=== PATIENT | female | born 1995 | race Caucasian/White ===

== ENCOUNTER 2019-05-30 10:49 | Emergency (ER) | payer OTHER, SELFPAY ==
--- NOTE | 2019-05-30 11:14 | ED.ABDPAIN ---
HPI - Abdominal Pain General Chief Complaint: Abdominal Pain Stated Complaint: Abdomen Pain Time Seen by Provider: 05/30/19 11:14 Source: patient Mode of arrival: ambulatory Limitations: no limitations History of Present Illness HPI narrative: Previously well 23-year-old woman comes in today complaining of abdominal pain that started approximately 30 minutes ago. Patient states that she has had some nausea. She states she also has been constipated for the last few days. LMP was 05/11. She has had no vaginal discharge, dysuria, hematuria, frequent urination, fever, diarrhea, vomiting or cough or cold symptoms. She is on OCP. She was treated with antibiotics approximately 1 month ago. Last intake was 929. MD elicited complaint: abdominal pain Pertinent past history: none Onset (ago): minute(s) (30) Pain Consistency: constant Location: periumbilical Severity: moderate Quality: fullness Radiation: none Migration to: no migration Exacerbating factors: nothing Relieving factors: nothing Associated symptoms: nausea Related Data Date of Last Menstrual Period: 05/12/19 Home Medications Medication Instructions Recorded Confirmed drospirenone-ethinyl estradiol 1 tablet PO DAILY 05/30/19 05/30/19 Allergies Allergy/AdvReac Type Severity Reaction Status Date / Time No Known Allergies Allergy Verified 05/30/19 11:20 Review of Systems Constitutional: Constitutional: Denies chills, Denies fever(s) and Denies weakness Eyes: Eyes: Denies change in vision and Denies photophobia ENT: Denies dysphagia, Denies nasal congestion and Denies sore throat Cardiovascular: Cardiovascular: Denies chest pain and Denies radiating jaw, neck or arm pain Respiratory: Respiratory: Denies no additional respiratory complaints, Denies cough, Denies dyspnea and Denies wheezing Gastrointestinal: Gastrointestinal: Reports as per HPI Genitourinary: Genitourinary: Denies hematuria, Denies nocturia, Denies dysuria and Denies vaginal discharge Musculoskeletal: Musculoskeletal: Denies myalgias, Denies arthralgias, Denies joint swelling and Denies muscle cramps Integumentary/Breasts: Skin/Breast: Denies pruritus, Denies erythema and Denies rash Neurologic: Denies vertigo, Denies dizziness and Denies syncope Psychiatric: Psychiatric: Denies anxiety and Denies depression Endocrine: Endocrine: Denies polydipsia and Denies polyuria Hematologic/Lymphatic: Hematologic/Lymphatic: Denies easy bleeding and Denies easy bruising Allergic/Immunologic: Allergic/Immunologic: Denies lip swelling and Denies wheezing [facility] Social History Social History (Updated 05/30/19 @ 11:43 by Zak Lorenzo MD) Smoking status: Never smoker Alcohol use details: Occasional Substance use: never Living arrangements: with family Exam Const: General: no acute distress and alert Nutritional Appearance: obese Orientation/consciousness: patient oriented x3 HENMT: Ears: external ears normal, TM's normal bilaterally and EAC's normal Mouth: Yes Normal oral and palatal mucosa present and Yes moist mucous membranes Throat: posterior oropharynx normal and uvula midline Eyes: Conjunctivae: conjunctivae normal Pupils: Equal, round and reactive pupils present EOM: EOMs intact bilaterally Resp: Effort & Inspection: normal respiratory effort and not labored Auscultation: clear to auscultation bilaterally, no rales, no rhonchi and no wheezes Cardio: Rate: regular rate Rhythm: regular rhythm Heart sounds: no murmurs GI: GI Palp: Yes Soft to palpation, Yes Tenderness to palpation present (GI) ( mildly periumbilical and right lower quadrant. No guarding. ), No Guarding due to palpation present (GI) and No Rigid due to palpation Other: mild percussion tenderness in the right lower quadrant. Diffuse abdominal striae. Skin: General skin exam: normal color, no jaundice and no pallor Rashes: no rashes Neuro: General: patient oriented x3, moves all extremiti
[2019-05-30 11:17] VITALS: BP 125/72; PULSE 96; RESP 18; TEMP 36.5; O2SAT 98
[2019-05-30 11:38] LABS: Add Urine Microscopic? YES; Appearance Urine Sl Cloudy (Clear); Bilirubin Urine Negative (Negative); Blood Urine Negative (Negative); Color Urine Yellow (Yellow); Glucose Urine UA Negative (Negative); Ketones Urine Negative (Negative); Leukocyte Esterase Ur Trace (Negative); Nitrate Urine Negative (Negative); Protein Urine Negative (Negative); Specific Grav Ur >= 1.030 (1.010-1.020); Urobilinogen Urine 0.2 mg/dL (0.2-1.0)
[2019-05-30] MEDS: SODIUM CHLORIDE 0.9% IV 1,000 ML 999 ML IV CONT (11:38)
[2019-05-30] MEDS: ONDANSETRON INJ 4 MG/2 ML VIAL IV PUSH (11:38)
[2019-05-30 11:40] LABS: Basophils Absolute Auto 0.03 K/mm3 (0.00-0.10); Basophils Percent Auto 0.4 % (0.0-1.0); Eosinophils Absolute Auto 0.11 K/mm3 (0.02-0.50); Eosinophils Percent Auto 1.5 % (1.0-6.0); Hemoglobin 13.3 g/dL (12.0-15.0); Immature Granulocyte Absolute 0.05 K/mm3 (0.00-0.00); Immature Granulocyte Percent A 0.7 % (0.0-0.0); Lymphocytes Absolute Auto 1.35 K/mm3 (1.10-4.50); Lymphocytes Percent Auto 18.5 % (18.0-42.0); Mean Corpuscular HGB Conc 33.3 g/dL (32.0-36.0); Mean Corpuscular Hemoglobin 27.3 pg (27.0-31.0); Mean Corpuscular Volume 82.1 fL (78.0-102.0); Mean Platelet Volume 10.5 fl (9.2-11.8); Monocytes Percent Auto 6.9 % (2.0-11.0); Neutrophils Absolute Auto 5.2 K/mm3 (1.7-7.2); Platelet Count Result 235 K/mm3 (150-420); Red Blood Count 4.87 M/mm3 (4.20-5.40); Red Cell Distribution Width 13.2 % (11.6-14.4); White Blood Count 7.3 K/mm3 (4.8-10.8)
[2019-05-30 11:47] LABS: RBC Urine None seen /hpf (0-2); Squamous Epithelial Cell Urine Moderate /hpf (Few); WBC Urine None seen /hpf (0-3)
[2019-05-30 11:48] LABS: Bacteria Urine 1+ /hpf
[2019-05-30 11:55] LABS: Lactic Acid Reflex 0.8 mmol/L (0.4-2.0)
[2019-05-30 11:59] LABS: Alanine Aminotransferase 37 U/L (14-59); Albumin Level 3.2 g/dL (3.4-5.0); Alkaline Phosphatase 70 U/L (46-116); Anion Gap 14.8 mmol/L (7-16); Aspartate Amino Transferase 26 U/L (15-37); Beta HCG Quantitative < 1.00 mIU/mL (0-6); Bilirubin,Total 0.2 mg/dL (0.00-1.00); Blood Urea Nitrogen 13 mg/dL (7-18); Calcium 8.7 mg/dL (8.5-10.1); Carbon Dioxide 25 mmol/L (21-32); Chloride 106 mmol/L (98-108); Estimated CRCL calculation 124 ml/min; Estimated Glomerular Filt Rate > 60; Glucose 100 mg/dL (70-99); Lipase 91 U/L (73-393); Osmolality Calculated 294 mOsm/kg (285-295); Potassium 3.8 mmol/L (3.5-5.1); Sodium 142 mmol/L (136-145); Total Protein 6.6 g/dL (6.4-8.2)
--- NOTE | 2019-05-30 12:15 | PC.NURSE ---
Per edp ok to discontinue fluids and d/c pt.
== END 2019-05-30 12:23 | disposition home or self-care (01) ==
PROVIDERS: Emergency Provider Emergency Medicine; PCP Internal Medicine
DX: R10.33 Periumbilical pain (principal)
CPT/HCPCS: 36415; 80053; 81001; 83605; 83690; 84702; 85025; 87086; 87088; 96361; 96374; 99284; J2405; J7030

== ENCOUNTER 2020-10-17 16:34 | Outpatient (CLI) | payer OTHER, SELFPAY ==
--- NOTE | 2020-10-17 17:10 | ECG_ITS ---
Measurements Intervals [place] Rate: 81 P: 29 UT: 151 QRS: 35 QRSD: 100 T: 23 QT: 350 QTc: 407 Interpretive Statements SINUS RHYTHM BASELINE ARTIFACT- II, III, AVF NORMAL ECG Electronically Signed On 10-17-2020 20:10:45 CDT by Johnny Escoto D.O.
== END 2020-10-17 16:35 | disposition home or self-care (01) ==
LOC: CHSCARD 16:38
PROVIDERS: PCP Internal Medicine; Visit Provider Internal Medicine
DX: R07.9 Chest pain, unspecified (principal)
CPT/HCPCS: 93005

== ENCOUNTER 2021-01-03 15:54 | Outpatient (CLI) | payer OTHER, SELFPAY ==
[2021-01-03 16:31] LABS: SPREG INTERNAL CONTROL Positive; Serum Qual hCG Negative
== END 2021-01-03 15:55 | disposition home or self-care (01) ==
LOC: CHSLAB 15:57
PROVIDERS: PCP Internal Medicine; Visit Provider Internal Medicine
DX: Z32.00 Encounter for pregnancy test, result unknown (principal)
CPT/HCPCS: 36415; 84703

== ENCOUNTER 2021-03-15 14:15 | Outpatient (CLI) | payer OTHER, SELFPAY ==
[2021-03-15 14:44] LABS: Serum Qual hCG Positive
[2021-03-15 14:45] LABS: SPREG INTERNAL CONTROL Positive
== END 2021-03-15 14:16 | disposition home or self-care (01) ==
LOC: CHSLAB 14:18
PROVIDERS: PCP Internal Medicine; Visit Provider Internal Medicine
DX: Z32.00 Encounter for pregnancy test, result unknown (principal)
CPT/HCPCS: 36415; 84703

== ENCOUNTER 2021-03-29 14:50 | Outpatient (CLI) | payer OTHER, SELFPAY ==
--- NOTE | ~2021-03-29 | US_ITS ---
EXAMINATION: US OB <= 14 weeks fetus DATE: 03/29/2021 15:10 INDICATION: Gestational dating TECHNIQUE: Real-time transabdominal obstetric ultrasound. FINDINGS: No prior studies for comparison. The uterus measures 9.3 x 5.1 x 5.8 cm. There is an intrauterine gestational sac, with pole raul ntified. The crown rump length measures 1.35 cm, which correlates with a estimated gestational age o f 7 weeks 4 days. heart tones are identified measuring 171 BPM. Right ovary is unremarkable. Left ovary not visualized. No free fluid in the pelvis. IMPRESSION: 1. SL IUP with an EGA of 7 weeks, 4 days (EDC by current ultrasound of 11/11/2021). Reviewed, dictated and finalized at location B. LEATH[facility] SORTER IMPRESSION: 1. SL IUP with an EGA of 7 weeks, 4 days (EDC by current ultrasound of 2).
== END 2021-03-29 14:51 | disposition home or self-care (01) ==
LOC: CHSIMG 14:51
PROVIDERS: PCP Internal Medicine; Visit Provider Student in an Organized Health Care Education/Training Program
DX: O36.80X0 Pregnancy with inconclusive fetal viability, not applicable or unspecified (principal)
CPT/HCPCS: 76801

== ENCOUNTER 2021-04-25 11:10 | Outpatient (CLI) | payer OTHER, SELFPAY ==
[2021-04-25 11:30] LABS: Basophils Absolute Auto 0.02 K/mm3 (0.00-0.10); Basophils Percent Auto 0.3 % (0.0-1.0); Eosinophils Percent Auto 1.5 % (1.0-6.0); Hematocrit 41.6 % (35.0-49.0); Hemoglobin 13.9 g/dL (12.0-15.0); Immature Granulocyte Absolute 0.03 K/mm3 (0.00-0.00); Immature Granulocyte Percent A 0.4 % (0.0-0.0); Lymphocytes Absolute Auto 1.24 K/mm3 (1.10-4.50); Lymphocytes Percent Auto 18.2 % (18.0-42.0); Mean Corpuscular HGB Conc 33.4 g/dL (32.0-36.0); Mean Corpuscular Volume 80.8 fL (78.0-102.0); Mean Platelet Volume 10.7 fl (9.2-11.8); Monocytes Absolute Auto 0.41 K/mm3 (0.10-0.90); Neutrophils Percent Auto 73.6 % (50.0-70.0); Platelet Count Result 220 K/mm3 (150-420); Red Blood Count 5.15 M/mm3 (4.20-5.40); Red Cell Distribution Width 14.6 % (11.6-14.4); White Blood Count 6.8 K/mm3 (4.8-10.8)
[2021-04-25 11:45] LABS: Add Urine Microscopic? YES; Appearance Urine Sl Cloudy (Clear); Bilirubin Urine Negative (Negative); Blood Urine Negative (Negative); Color Urine Light Yellow (Yellow); Glucose Urine UA Negative (Negative); Ketones Urine Negative (Negative); Leukocyte Esterase Ur Trace (Negative); Nitrate Urine Negative (Negative); Protein Urine Negative (Negative); Specific Grav Ur >= 1.030 (1.010-1.020); Urobilinogen Urine 0.2 mg/dL (0.2-1.0)
[2021-04-25 11:49] LABS: RBC Urine None seen /hpf (0-2); WBC Urine 0-3 /hpf (0-3)
[2021-04-25 11:50] LABS: Bacteria Urine 2+ /hpf; Squamous Epithelial Cell Urine Moderate /hpf (Few)
[2021-04-25 12:05] LABS: Alanine Aminotransferase 34 U/L (14-59); Albumin Level 3.8 g/dL (3.4-5.0); Alkaline Phosphatase 67 U/L (46-116); Anion Gap 13 mmol/L (8-16); Aspartate Amino Transferase 14 U/L (15-37); Bilirubin,Total 0.4 mg/dL (0.00-1.00); Blood Urea Nitrogen 12 mg/dL (7-18); Carbon Dioxide 23 mmol/L (21-32); Chloride 104 mmol/L (98-108); Estimated Glomerular Filt Rate > 60; Glucose 80 mg/dL (70-99); Lactate Dehydrogenase 165 U/L (81-234); Osmolality Calculated 288 mOsm/kg (285-295); Potassium 4.2 mmol/L (3.5-5.1); Sodium 140 mmol/L (136-145); Thyroid Stimulating Hormone 1.46 uIU/mL (0.36-3.74); Total Protein 6.9 g/dL (6.4-8.2); Uric Acid 4.2 mg/dL (2.6-6.0)
[2021-04-25 12:13] LABS: HIV 1 P24 AG Negative (Negative); HIV 1/2 AB Negative (Negative)
[2021-04-27 13:59] LABS: RPR Screen Non-Reactive (Non-Reactive)
[2021-04-27 14:23] LABS: Hepatitis B Surface Antigen Nonreactive (Nonreactive); Hepatitis C Virus Antibody Nonreactive (Nonreactive)
[2021-04-27 14:34] LABS: Vitamin D 25 Hydroxy 15 ng/mL (30-100)
[2021-04-28 13:35] LABS: Rubella IgG Antibody 1.33 Index
[2021-04-30 02:27] LABS: Hemoglobin 13.6 g/dL (11.7-15.5); MCH 26.1 pg (27.0-33.0); MCV 82.5 fL (80.0-100.0); RDW 14.8 % (11.0-15.0); Red Blood Cell Count 5.21 Mill/uL (3.80-5.10)
[2021-05-06 13:45] LABS: CF Result NEGATIVE (NEGATIVE)
[2021-05-25 12:21] LABS: Fragile X Methylation Pattern PERFORMED
== END 2021-04-25 11:11 | disposition home or self-care (01) ==
LOC: CHSLAB 11:13
PROVIDERS: PCP Internal Medicine; Visit Provider Student in an Organized Health Care Education/Training Program
DX: Z34.90 Encounter for supervision of normal pregnancy, unspecified, unspecified trimester (principal); I10 Essential (primary) hypertension
CPT/HCPCS: 36415; 80053; 81001; 81050; 81220; 81243; 82306; 82570; 83021; 83615; 84443; 84550; 85025; 86592; 86703; 86762; 86787; 86850; 86900; 86901; 87086; 87088

== ENCOUNTER 2021-04-27 08:01 | Outpatient (CLI) | payer OTHER, SELFPAY ==
[2021-04-27 08:34] LABS: Creatinine Urine 120.62 mg/dL (40-278)
[2021-04-27 08:38] LABS: Creatinine 24 Hour Urine 1.68 g/24 hr (0.60-1.80); Total Volume 24 Hour Urine 1400 ml
[2021-04-27 08:41] LABS: Total Protein Urine 24 Hr 116 mg/24hr (0-149); Total Protein Urine Random 8.3 mg/dL (0.0-11.9); Total Volume 24 Hour Urine 1400 ml
== END 2021-04-27 08:02 | disposition home or self-care (01) ==
LOC: CHSLAB 08:04
PROVIDERS: PCP Internal Medicine; Visit Provider Student in an Organized Health Care Education/Training Program
DX: Z34.90 Encounter for supervision of normal pregnancy, unspecified, unspecified trimester (principal); I10 Essential (primary) hypertension
CPT/HCPCS: 81050; 82570; 84156

== ENCOUNTER 2021-07-20 08:04 | Outpatient (CLI) | payer OTHER, SELFPAY ==
[2021-07-20 09:24] LABS: Basophils Absolute Auto 0.02 K/mm3 (0.00-0.10); Basophils Percent Auto 0.2 % (0.0-1.0); Eosinophils Absolute Auto 0.03 K/mm3 (0.02-0.50); Eosinophils Percent Auto 0.3 % (1.0-6.0); Hematocrit 38.3 % (35.0-49.0); Hemoglobin 12.3 g/dL (12.0-15.0); Immature Granulocyte Absolute 0.13 K/mm3 (0.00-0.00); Immature Granulocyte Percent A 1.5 % (0.0-0.0); Lymphocytes Absolute Auto 1.52 K/mm3 (1.10-4.50); Mean Corpuscular HGB Conc 32.1 g/dL (32.0-36.0); Mean Corpuscular Hemoglobin 27.7 pg (27.0-31.0); Mean Corpuscular Volume 86.3 fL (78.0-102.0); Mean Platelet Volume 10.2 fl (9.2-11.8); Monocytes Absolute Auto 0.48 K/mm3 (0.10-0.90); Monocytes Percent Auto 5.4 % (2.0-11.0); Neutrophils Absolute Auto 6.8 K/mm3 (1.7-7.2); Neutrophils Percent Auto 75.6 % (50.0-70.0); Platelet Count Result 230 K/mm3 (150-420); Red Blood Count 4.44 M/mm3 (4.20-5.40); Red Cell Distribution Width 14.8 % (11.6-14.4)
[2021-07-20 11:09] LABS: Glucose 1 Hour PP 50gm Dose 109 mg/dL
== END 2021-07-20 08:05 | disposition home or self-care (01) ==
LOC: CHSLAB 08:07
PROVIDERS: PCP Internal Medicine; Visit Provider Student in an Organized Health Care Education/Training Program
DX: Z34.02 Encounter for supervision of normal first pregnancy, second trimester (principal)
CPT/HCPCS: 36415; 82947; 85025

== ENCOUNTER 2021-09-18 14:22 | Outpatient (CLI) | payer OTHER, SELFPAY ==
[2021-09-18 14:36] LABS: Basophils Absolute Auto 0.01 K/mm3 (0.00-0.10); Basophils Percent Auto 0.1 % (0.0-1.0); Eosinophils Absolute Auto 0.04 K/mm3 (0.02-0.50); Eosinophils Percent Auto 0.5 % (1.0-6.0); Hematocrit 36.2 % (35.0-49.0); Hemoglobin 11.5 g/dL (12.0-15.0); Immature Granulocyte Absolute 0.07 K/mm3 (0.00-0.00); Immature Granulocyte Percent A 0.9 % (0.0-0.0); Lymphocytes Absolute Auto 1.33 K/mm3 (1.10-4.50); Lymphocytes Percent Auto 16.9 % (18.0-42.0); Mean Corpuscular HGB Conc 31.8 g/dL (32.0-36.0); Mean Corpuscular Hemoglobin 26.4 pg (27.0-31.0); Mean Platelet Volume 11.3 fl (9.2-11.8); Monocytes Absolute Auto 0.52 K/mm3 (0.10-0.90); Monocytes Percent Auto 6.6 % (2.0-11.0); Neutrophils Absolute Auto 5.9 K/mm3 (1.7-7.2); Platelet Count Result 229 K/mm3 (150-420); Red Blood Count 4.36 M/mm3 (4.20-5.40); Red Cell Distribution Width 14.7 % (11.6-14.4); White Blood Count 7.9 K/mm3 (4.8-10.8)
[2021-09-18 15:54] LABS: HIV 1 P24 AG Negative (Negative); HIV 1/2 AB Negative (Negative)
[2021-09-20 14:59] LABS: RPR Screen Non-Reactive (Non-Reactive)
== END 2021-09-18 14:23 | disposition home or self-care (01) ==
LOC: CHSLAB 14:25
PROVIDERS: PCP Internal Medicine; Visit Provider Student in an Organized Health Care Education/Training Program
DX: Z34.03 Encounter for supervision of normal first pregnancy, third trimester (principal)
CPT/HCPCS: 36415; 85025; 86592; 86703

== ENCOUNTER 2021-10-01 21:27 | Outpatient (RCR) | payer OTHER, SELFPAY ==
[2021-10-01 21:42] VITALS: BP 116/59; PULSE 86
== END 2021-11-28 10:04 | disposition home or self-care (01) ==
LOC: ANHOBOP 21:27
PROVIDERS: PCP Internal Medicine; Visit Provider Student in an Organized Health Care Education/Training Program
DX: O36.8130 Decreased fetal movements, third trimester, not applicable or unspecified (principal); Z3A.34 34 weeks gestation of pregnancy
CPT/HCPCS: 59025

== ENCOUNTER 2021-10-13 20:15 | Outpatient (CLI) | payer OTHER, SELFPAY ==
[2021-10-13 20:27] VITALS: TEMP 36.6
[2021-10-13 20:34] VITALS: BP 120/89; PULSE 114
[2021-10-13 20:48] VITALS: BP 106/52; PULSE 92
== END 2021-10-13 21:01 | disposition home or self-care (01) ==
LOC: ANHOBOP 20:52 → ANHLDR 20:52
PROVIDERS: PCP Internal Medicine; Visit Provider Student in an Organized Health Care Education/Training Program
DX: O42.90 Premature rupture of membranes, unspecified as to length of time between rupture and onset of labor, unspecified weeks of gestation (principal); Z3A.00 Weeks of gestation of pregnancy not specified
CPT/HCPCS: 59025; 84112; 99199

== ENCOUNTER 2021-10-31 16:44 | Inpatient (IN) | payer OTHER, SELFPAY ==
[2021-10-31] VITALS (24 sets, daily range): BP systolic 127–146; BP diastolic 53–96; PULSE 80–99; RESP 16–18; TEMP 36.9–37.3; BMI 55.8
--- NOTE | 2021-10-31 16:44 | LDADM ---
This patient, Lucille England, was admitted to Labor 109 on 10/31/21 at 16:44. Plans for labor, pain management and were discussed with patient. Patient/family oriented to hospital policies and general routines including ID bracelet, bed and alarms, visiting hours, pain management, procedures, bathroom and other care routines, personal items, smoking policy, room service/diet and guest tray routines, infant security routines, and visiting hours. Patient/Family are encouraged to report perceived risks to care and to ask questions if they do not understand what they are told or what they should do. See OBIX for further documentation.
--- OUTSIDE RECORDS SUMMARY | 2021-10-31 16:48 | XMS_ITS ---
:1995 Author Care Team Providers Name Role Phone Sharmaine Hassan Primary Care Provider Unavailable Allergies Code Code System Name Reaction Severity Status Onset NKDA ? Medications Name Status Start Date Stop Date ? ? Lomedia 24 Fe 1 mg-20 mcg (24)/75 mg (4) tablet Completed 11/15/2016 02/18/2017 take 1 tablet by oral route every day Ortho Tri-Cyclen (28) 0.18 mg(7)/0.215 mg(7)/0.25 mg(7)-35 m cg tablet Completed 02/18/2017 04/14/2020 take 1 tablet by oral route every day Luisa (28) 3 mg-0.03 mg tablet Completed 08/31/2018 04/14/2020 TAKE 1 TABLET BY MOUTH EVERY DAY Problems Name Status Onset Date Source ? Body Mass Index 30+ - Obesity Active 11/15/2016 Hi story Pain in Female Genitalia Active 11/15/2016 History Combined Oral Contraceptive - Use Active 02/18/2017 History Test Negative Active 08/26/2018 History Procedures None recorded. Results Lab Results None recorded. Past Encounters None recorded. Social History Tobacco Smoking Status Never Smoker Vaccine List None recorded. Plan of Care Reminders Provider Appointments None recorded. ? ? Lab None recorded. ? ? Referral None recorded. ? ? Procedures None recorded. ? ? Surgeries None recorded. ? ? Imaging None recorded. ? ? Vitals Height Weight BMI Blood Pressure 5 ft 3 in 281 lbs 49.8 kg/m2 124/83 mm[Hg]
[2021-10-31 18:35] LABS: Basophils Percent Auto 0.1 % (0.2-1.2); Eosinophils Percent Auto 0.4 % (0-4.4); Hematocrit 36.3 % (37.0-47.0); Hemoglobin 11.7 g/dL (12.0-15.0); Immature Granulocyte Absolute 0.03 K/mm3 (0.00-0.031); Immature Granulocyte Percent A 0.4 % (0-0.5); Lymphocytes Absolute Auto 1.83 K/mm3 (0.9-3.2); Mean Corpuscular HGB Conc 32.2 g/dl (32-36); Mean Corpuscular Hemoglobin 25.6 pg (26-34); Mean Corpuscular Volume 79.4 fl (80-100); Mean Platelet Volume 11.8 fl (7.4-10.4); Monocytes Absolute Auto 0.7 K/mm3 (0.1-0.6); Monocytes Percent Auto 8.8 % (2.6-8.5); Neutrophils Absolute Auto 5.3 K/mm3 (1.3-6.7); Neutrophils Percent Auto 67.3 % (45.5-73.1); Platelet Count Result 248 k/mm3 (150-375); Red Blood Count 4.57 M/mm3 (4.2-5.4); Red Cell Distribution Width 15.9 % (11.5-14.5); White Blood Count 7.9 K/mm3 (4.5-10.0)
[2021-10-31] MEDS: DINOPROSTONE 10 MG VAG INSERT VAGINAL (18:37)
--- NOTE | 2021-10-31 19:54 | WPDANESEPP ---
Anes - Eval Pre Procedure Procedure: Labor Epidural Date/Time: 10/31/21 19:54 Pre Op Diagnosis: iol Patient Data Age: 26 Gender: F Height: 1.6 m Weight: 143 kg Last Vital Signs Pulse 83 10/31/21 19:45 BP 130/84 10/31/21 19:45 Allergies Allergy/AdvReac Type Severity Reaction Status Date / Time No Known Allergies Allergy Verified 10/24/21 09:58 Home Medications Medication Instructions Recorded Confirmed Type cholecalciferol (vitamin D3) 50 50 mcg PO DAILY 05/23/21 10/31/21 History mcg (2,000 unit) capsule prenat.vits,tahir,vuo-bhvi-uezem 1 tablet PO HS 10/12/21 10/13/21 History Laboratory Tests 10/31/21 10/31/21 10/31/21 18:14 18:14 18:14 WBC 7.9 K/mm3 K/mm3 (4.5-10.0) RBC 4.57 M/mm3 M/mm3 (4.2-5.4) Hgb 11.7 g/dL L g/dL (12.0-15.0) Hct 36.3 % L % (37.0-47.0) MCV 79.4 fl L fl (80-100) MCH 25.6 pg L pg (26-34) MCHC 32.2 g/dl g/dl (32-36) RDW 15.9 % H % (11.5-14.5) Plt Count 248 k/mm3 k/mm3 (150-375) MPV 11.8 fl H fl (7.4-10.4) Immature Gran % (Auto) 0.4 % % (0-0.5) Neut % (Auto) 67.3 % % (45.5-73.1) Lymph % (Auto) 23.0 % % (18.3-44.2) [place] % (Auto) 8.8 % H % (2.6-8.5) Eos % (Auto) 0.4 % % (0-4.4) Baso % (Auto) 0.1 % L % (0.2-1.2) Lymph # (Auto) 1.83 K/mm3 K/mm3 (0.9-3.2) [place] # (Auto) 0.7 K/mm3 H K/mm3 (0.1-0.6) Eos # (Auto) 0.0 K/mm3 K/mm3 (0-0.3) Baso # (Auto) 0.0 K/mm3 K/mm3 (0.0-0.1) Abs Immat Gran (auto) 0.03 K/mm3 K/mm3 (0.00-0.031) Absolute Neuts (auto) 5.3 K/mm3 K/mm3 (1.3-6.7) Absolute Nucleated RBC 0.0 K/mm3 K/mm3 (0.0-0.012) Nucleated RBC % 0.0 % % (0.0-0.2) RPR Pending Blood Type A Positive Antibody Screen Negative Patient hx anesthesia problems: none Family hx anesthesia problems: none Results Review: All pre-operative results and documents have been reviewed as part of the pre-operative evaluation. [facility] Past Medical History Medical History Carrier of fragile X chromosome Surgical History Surgical History [place] teeth removed Family History Family History Grandparent Ovarian cancer Social History Social History Smoking status: Never smoker Alcohol intake: former Substance use: never Gender identity (if verbalized by the patient): Female Spiritual care concerns: No Agree to blood products: Yes Exam Day of Procedure 10/31/21 19:54 Patient weight: super morbidly obese Lungs: normal air movement Airway: Mallampati scale (3) Neurological: alert and oriented
[2021-10-31] MEDS: LACTATED RINGERS 1,000 ML 125 ML IV CONT (23:38)
[2021-10-31] MEDS: OXYTOCIN 30 UNITS/NS 500 ML 30 UNITS/500 ML BAG 6 UNITS IV CONT (23:54)
[2021-11-01] VITALS (240 sets, daily range): BP systolic 99–162; BP diastolic 51–110; PULSE 76–140; RESP 12–20; TEMP 36.2–37.3; O2SAT 95–100
[2021-11-01] MEDS: LACTATED RINGERS 1,000 ML 125 ML IV CONT ×2 (01:19→07:02)
[2021-11-01 09:09] LABS: Alanine Aminotransferase 19 U/L (6-35); Albumin Level 3.1 g/dL (3.5-5.1); Alkaline Phosphatase 120 U/L (38-126); Anion Gap 8 mmol/L (8-16); Aspartate Amino Transferase 18 U/L (14-36); Bilirubin,Total 0.2 mg/dL (0.2-1.3); Blood Urea Nitrogen 12 mg/dL (7-17); Calcium 9.3 mg/dL (8.4-10.2); Carbon Dioxide 21 mmol/L (22-30); Chloride 106 mmol/L (98-107); Estimated CRCL calculation 172 ml/min; Estimated Glomerular Filt Rate > 60; Glucose 87 mg/dL (65-110); Potassium 4.3 mmol/L (3.4-5.0); Sodium 135 mmol/L (137-145); Uric Acid 6.5 mg/dL (2.5-7.5)
--- NOTE | 2021-11-01 11:45 | PM.IMHP ---
H&P: HPI History of Present Illness Date/Time: 11/01/21 11:45 Chief Complaint: Induction of labor Narrative: Patient 26-year-old LMP 01/31/2021 currently 39 weeks 1 day gestation presents to labor and delivery on the evening of 10/31/21 the for scheduled induction of labor. Patient is dated by LMP consistent with ultrasound on 03/29/2021 at 7 weeks gestation. patient was diagnosed with chronic hypertension due to elevated blood pressures prior to 20 weeks of gestation. Subsequent blood pressures have been within normal limits. Patient was also diagnosed with fragile X syndrome during . In general, patient reports feeling well. Reports occasional contractions. Denies any vaginal bleeding, leakage of fluid. Reports good movement. Review of Systems Review of Systems: All systems reviewed & are unremarkable except as noted in HPI and below Constitutional: Constitutional: Reports as per HPI and Reports no additional constitutional complaints Eyes: Eyes: Reports as per HPI and Reports no additional eye complaints ENT: Reports system reviewed and no additional complaints, except as documented and Reports as per HPI Cardiovascular: Cardiovascular: Reports as per HPI and Reports no additional cardiovascular complaints Respiratory: Respiratory: Reports as per HPI and Reports no additional respiratory complaints Gastrointestinal: Gastrointestinal: Reports as per HPI and Reports no additional gastrointestinal complaints Genitourinary: Genitourinary: Reports no additional female genitourinary complaints and Reports as per HPI Musculoskeletal: Musculoskeletal: Reports no additional musculoskeletal complaints and Reports as per HPI Integumentary/Breasts: Skin/Breast: Reports system reviewed and no additional complaints, except as docu and Reports as per HPI Neurologic: Reports system reviewed and no additional complaints, except as documented and Reports as per HPI Psychiatric: Psychiatric: Reports no additional psychiatric complaints and Reports as per HPI Endocrine: Endocrine: Reports no additional endocrine complaints and Reports as per HPI Hematologic/Lymphatic: Hematologic/Lymphatic: Reports no additional hematologic/lymphatic complaints and Reports as per HPI Allergic/Immunologic: Allergic/Immunologic: Reports no additional allergic/immunologic complaints and Reports as per HPI PMFSH Past Medical History Medical History Carrier of fragile X chromosome Surgical History Surgical History [place] teeth removed Family History Family History Grandparent Ovarian cancer Social History Social History Smoking status: Never smoker Alcohol intake: former Substance use: never Gender identity (if verbalized by the patient): Female Spiritual care concerns: No Agree to blood products: Yes Meds Home Medications and Allergies Home Medications Medication Instructions Recorded Confirmed Type cholecalciferol (vitamin D3) 50 50 mcg PO DAILY 05/23/21 10/31/21 History mcg (2,000 unit) capsule prenat.vits,tahir,[id number]-jbqhu 1 tablet PO HS 10/12/21 10/13/21 History Allergies Allergy/AdvReac Type Severity Reaction Status Date / Time No Known Allergies Allergy Verified 10/24/21 09:58 Vital Signs Vital Signs - 24 hr 10/31/21 18:17 10/31/21 19:07 10/31/21 19:15 Temperature Pulse Rate 99 82 89 Respiratory Rate Blood Pressure 127/53 L 134/83 133/86 Pulse Oximetry 10/31/21 19:30 10/31/21 19:45 10/31/21 18:30 Temperature 37.2 C 37.3 C Pulse Rate 87 83 Respiratory Rate 16 18 Blood Pressure 137/86 130/84 Pulse Oximetry 10/31/21 20:00 10/31/21 20:15 10/31/21 20:31 Temperature 37.2 C Pulse Rate 82 82 80 Respiratory Rate 18 Blood Pressure 129/8
[2021-11-01] MEDS: LACTATED RINGERS 1,000 ML 999 ML IV CONT (11:49)
--- NOTE | 2021-11-01 11:50 | P.PNAN_ITS ---
Anes - Eval Final PreProcedure Day of Procedure 11/01/21 11:50 Patient weight: super morbidly obese Heart: regular rate and rhythm Lungs: clear to auscultation Airway: Mallampati scale class III Neurological: alert and oriented ASA classification: III Emergent: no Anesthetic plan: proceed Anesthesia type and monitoring: regional epidural and standard monitoring Other findings: use epid for c/s Results Review: All pre-operative results and documents have been reviewed as part of the pre- operative evaluation. Informed Consent: The patient's anesthetic plan and its attendant risks and benefits were discussed with the patient/family/POA. Questions were solicited and answers provided to the satisfaction of the patient/family/POA.
--- NOTE | 2021-11-01 11:53 | WPDHPUPDATE1 ---
History and Physical Update Update Date/Time: 11/01/21 11:53 History and Physical has been reviewed, including an updated exam of the patient. There are NO changes in the patient's condition. Risks, benefits, and alternatives have been discussed and questions answered. Patient agrees to proceed with procedure.
--- NOTE | 2021-11-01 11:54 | PM.OBPNLAB ---
Pain Control Date/time seen: 11/01/21 11:54 Patient comfortable. EFM has shown intermittent periods of category II tracing over past few hours, however, tends to improve with interventions. Currently on pitocin, however, contractions inadequate. SVE 4-5/90/-2. Late decelerations noted. Minimal cervical change management specialist past several hours. Situation discussed in detail with patient and family. Discussed low likelihood of successful vaginal delivery considering inadequate contraction pattern in the setting of Category II tracing remote from delivery. Recommendation made to proceed with section. Risks and benefits discussed, inc., but not limited to bleeding, infection, injury to surrounding organs. Patient implied an understanding and agrees with plan. Pitocin discontinued. Anesthesia aware.
[2021-11-01] MEDS: ceFAZolin 3 GM/D5W 100 ML 100 ML IVPB (12:03)
[2021-11-01] MEDS: KETOROLAC 30 MG/ML VIAL (*BKC) IV PUSH (13:01)
--- NOTE | 2021-11-01 13:30 | W.PM.PROC2 ---
Procedure Note - Detailed Date of Procedure 11/01/21 Pre-op Diagnosis IUP at 39w1d Category II tracing remote from delivery Post-op Diagnosis Same Procedure Performed Primary low transverse section via Pfannenstiel Surgeon Kenna Morrissey MD [employer] Carla Sinha Findings Live female in occiput transverse presentation, apgars 9/9, weighing 7 lbs. 4 oz., nuchal cord x 1, clear amniotic fluid; normal appearing uterus, ovaries and fallopian tubes bilaterally Description of Procedure The patient was taken to the operating room, where she was transferred to the operating room table. The patient was placed in dorsal supine position with a leftward tilt. She was prepped and draped in the usual sterile fashion with a Traxi retractor. Epidural anesthesia that was previously administered was tested and found to be adequate. A Pfannenstiel skin incision was made with a scalpel and carried through to underlying layer of fascia with the Bovie. The fascia was incised in the midline and the incision was extended laterally with the use of forceps and Tovar scissors. The inferior aspect of the fascial incision was grasped with Sonia clamps, elevated, and the underlying rectus muscle were dissected off with Tovar scissors. Attention was then turned to the superior aspect of the fascial incision, which in a similar manner, was grasped with Sonia clamps, elevated, and the underlying rectus muscles were also dissected off with Tovar scissors. The rectus muscles were in the midline and the peritoneal cavity was entered bluntly. This incision was extended superiorly and inferiorly. An Jose retractor was placed inside of the abdominal cavity and rolled to enhance visualization. A bladder blade was inserted, however, due to still limited visualization inferiorly, the bladder was not visualized. A low-transverse uterine incision was made with a scalpel. This incision was extended laterally with bandage scissors. Amniotomy was performed. Clear amniotic fluid was noted. The 's head was noted to be in occiput transverse presentation. Head was grasped and gently guided to the level of the uterine incision. The 's head was delivered easily and atraumatically without difficulty. A nuchal cord x 1 was noted and easily reduced. The infant's neck, shoulders, and rest of body were delivered easily with gentle fundal pressure. The 's nose and mouth were suctioned with bulb suction. The infant was crying spontaneously. The cord was clamped and cut and the was handed off to awaiting nursing staff. A segment of cord was collected for cord gases. Cord blood was also collected. The placenta was then delivered manually with gentle uterine massage. Uterus was cleared of all clots and debris. The uterine incision was reapproximated with 0 Vicryl in a running, locked fashion. A second imbricating layer using 0 Monocryl performed. On inspection, the uterus, ovaries, and fallopian tubes appeared to be normal bilaterally. The uterus was replaced into the abdominal cavity. The gutters were cleared of all clots and debris. The uterine incision was inspected again. A pinpoint area of bleeding was noted and made hemostatic with bovie. Excellent hemostasis as noted. Hemaderm was applied across the uterine incision. Interceed was also applied across the uterine incision and anterior surface of the uterus. The peritoneum was reapproximated with 2-0 Monocryl. The fascia was then closed with 0 Vicryl in a running fashion. The subcutaneous layer was irrigated with water. Pinpoint areas of bleeding were made hemostatic with Bovie. The subcutaneous layer was reapproximated with 2-0 plain and the skin was then closed with 4-0 Monocryl in a subcuticular fashion. The skin was cleansed and dried. Dermaflex skin adhesive was applied across the incision. A pressure dressing was also applied. The remainder the patient was cleansed and dried. The patient was transferred to the recovery room in
--- NOTE | 2021-11-01 13:46 | P.PCNOB_ITS ---
OB - Delivery Note Procedure Delivery date: 11/01/21 Procedure: Procedures Operation Date: 11/01/21 12:00 Actual Procedure Side Surgeon p Section Kenna Morrissey MD Events: Chronic Hypertension Intrapartal Events: Non-Reassuring Status Induction method: Per Cervidil Protocol Delivery augmentation: Pitocin Delivery monitor: External FHT, External Uterine and Internal Uterine Route of delivery: Prior to decision for section, ACOG/SM labor guidelines were considered and discussed with the patient and staff. Decision made to proceed with the section.: Yes Specimen: Yes (cord blood and cord gases) Quantitative Blood Loss (ml): 565 Anesthesia type: Epidural Disposition: PACU Complications: No immediate complications [place] Baby Date of : 11/01/21 Time of : 12:40 Weeks of gestation at delivery: 39 (39.1) Infant gender: Female Weight (pounds): 7 Weight (ounces): 4 presentation: vertex position: Left Occiput Transverse Placenta delivery description: Manual Removal Cord Vessel Description: 3 Vessels, Nuchal Cord (x1) and Clamped/Cut score one minute: 9 score five minutes: 9 AMG Delivery Billing Delivery Delivery: Delivery Charge
[2021-11-01] MEDS: OXYTOCIN 30 UNITS/NS 500 ML 30 UNITS/500 ML BAG 125 UNITS IV CONT (13:47)
[2021-11-01] MEDS: MORPHINE SULFATE INJ (*CRX) 10 MG/ML AMP 3 MG IV PUSH (14:46)
--- NOTE | 2021-11-01 16:00 | OBPPTRN ---
Patient transferred to post room # 290 via stretcher. Support person present. Oriented to unit, room, information board, rooming in, admission packet and security measures. Patient verbalizes understanding.
[2021-11-01] MEDS: DEXTROSE 5%/0.45% SOD CHL 1,000 ML 125 ML IV CONT (18:06)
[2021-11-02] VITALS (7 sets, daily range): BP systolic 118–149; BP diastolic 68–83; PULSE 81–101; RESP 18–20; TEMP 35.8–36.8; O2SAT 100
[2021-11-02] MEDS: HYDROcodone/acetaminophen (*CRX) 5-325 MG TABLET 1 TAB PO (00:46)
[2021-11-02] MEDS: IBUPROFEN 600 MG TABLET PO ×3 (00:47→14:46)
[2021-11-02] MEDS: HYDROcodone/acetaminophen (*CRX) 10-325 MG TABLET 1 TAB PO ×3 (05:05→14:47)
[2021-11-02 05:29] LABS: Basophils Percent Auto 0.2 % (0.2-1.2); Eosinophils Percent Auto 0.1 % (0-4.4); Hematocrit 31.2 % (37.0-47.0); Hemoglobin 9.6 g/dL (12.0-15.0); Immature Granulocyte Absolute 0.07 K/mm3 (0.00-0.031); Immature Granulocyte Percent A 0.7 % (0-0.5); Lymphocytes Percent Auto 19.2 % (18.3-44.2); Mean Corpuscular HGB Conc 30.8 g/dl (32-36); Mean Corpuscular Hemoglobin 25.5 pg (26-34); Mean Platelet Volume 11.4 fl (7.4-10.4); Monocytes Absolute Auto 0.9 K/mm3 (0.1-0.6); Monocytes Percent Auto 9.5 % (2.6-8.5); Neutrophils Absolute Auto 6.6 K/mm3 (1.3-6.7); Neutrophils Percent Auto 70.3 % (45.5-73.1); Platelet Count Result 178 k/mm3 (150-375); Red Blood Count 3.76 M/mm3 (4.2-5.4); Red Cell Distribution Width 16.5 % (11.5-14.5); White Blood Count 9.4 K/mm3 (4.5-10.0)
[2021-11-02 07:22] LABS: Rapid Plasma Reagin Non-Reactive (NonReactive)
--- NOTE | 2021-11-02 08:50 | PM.OBPNVD ---
OB - PN: Subj Subjective Date/time seen: 11/02/21 08:50 Patient doing well this AM. Reports soreness. States that pain is reasonably controlled with medication. Denies any headache, chest pain, SOB, N/V. Tolerating clears. [place] removed this morning. Has not yet voided. Passing flatus. Limited ambulation. OB - PN: Obj Data Labs CBC & Chem 7: 11/02/21 04:52 11/01/21 08:48 Labs: Laboratory Results - last 24 hr 10/31/21 11/01/21 11/02/21 18:14 08:48 04:52 WBC 9.4 RBC 3.76 L Hgb 9.6 L Hct 31.2 L MCV 83.0 MCH 25.5 L MCHC 30.8 L RDW 16.5 H Plt Count 178 MPV 11.4 H Immature Gran % (Auto) 0.7 H Neut % (Auto) 70.3 Lymph % (Auto) 19.2 [place] % (Auto) 9.5 H Eos % (Auto) 0.1 Baso % (Auto) 0.2 Lymph # (Auto) 1.80 [place] # (Auto) 0.9 H Eos # (Auto) 0.0 Baso # (Auto) 0.0 Abs Immat Gran (auto) 0.07 H Absolute Neuts (auto) 6.6 Absolute Nucleated RBC 0.0 Nucleated RBC % 0.0 Sodium 135 L Potassium 4.3 Chloride 106 Carbon Dioxide 21 L Anion Gap 8 BUN 12 Creatinine 0.60 L Estim Creat Clear Calc 172 Estimated GFR > 60 Glucose 87 Uric Acid 6.5 Calcium 9.3 Total Bilirubin 0.2 AST 18 ALT 19 Alkaline Phosphatase 120 Total Protein 6.0 L Albumin 3.1 L RPR Non-reactive OB - PN A/P Assessment and Plan (1) Delivery by section using transverse incision of lower segment of uterus: Code(s): O82 - Encounter for delivery without indication Status: Acute Assessment and Plan: POD#1 doing well continue routine postoperative care encourage ambulation and use of IS Time Spent With Patient Time: Total time spent is greater than 50% in coordination of care (as documented) at patient's floor/unit and/or counseling patient: Review of Systems Review of Systems: All systems reviewed & are unremarkable except as noted in HPI and below Constitutional: Constitutional: Reports as per HPI and Reports no additional constitutional complaints Gastrointestinal: Gastrointestinal: Reports as per HPI and Reports no additional gastrointestinal complaints Genitourinary: Genitourinary: Reports no additional female genitourinary complaints and Reports as per HPI Exam Const: General: cooperative, comfortable and no acute distress GI: Inspection: non-distended GI Palp: Yes Soft to palpation and Yes Tenderness to palpation present (GI) (appropriately tender) Other: inc covered with bandage, bandage c/d/i Extrem: Right lower extremity: edema Details: 1+ Left lower extremity: edema Details: 1+ Other: no calf tenderness
--- NOTE | 2021-11-02 09:00 | PC.NURSE ---
0800 - Introductions were made, then consulted with patient to assess needs related to . Mother led the conversation with her original plan and the?experience so far with the changes. Mother is undecided of how she would like to feed her infant. Discussed milk production, pumping for stimulating for a good milk supply. Resources provided for inpatient and outpatient services using a resource guide and mom/baby guide. Mother voiced understanding of information and will call if there is a request for assistance. Reported to primary RN.
[2021-11-02] MEDS: MULTIVIT/MIN/PREN/FOL AC/IRON TABLET 1 TAB PO (09:09)
[2021-11-02] MEDS: SIMETHICONE 80 MG TAB.CHEW PO ×2 (09:09→14:46)
[2021-11-02] MEDS: POLYSACCHARIDE IRON COMPLEX 150 MG CAPSULE PO (09:09)
--- NOTE | 2021-11-02 14:10 | PC.NURSE ---
0920 - Breast pump provided due to ineffective feedings and bottle feeding. Mother is unsure how she would like to feed her infant and decided to pump to protect the milk supply. Instructions given on cleaning, care, usage, that there should be no pain, pumping schedule for milk production, collection, and storage of human milk. Patient was assessed for correct placement, flange size, to pump for comfort and nipple stretching/stimulation for adequate milk production every 3 hours (8 times in 24 hours) 1-2 times at night. is fed the 0.5 mls of colostrum to the infant with a syringe while finger sucking. Reported to the primary RN.
--- NOTE | 2021-11-02 14:43 | WPDANLDNPN2 ---
Anes-Prog Note L&D-Neuraxial Date/Time: 11/02/21 14:43 Patient feedback: Patient satisfied with post-operative pain management.
--- NOTE | 2021-11-02 14:43 | WPDANLDPN2 ---
Anes-Prog Note L&D Date/Time: 11/02/21 14:43 Neuro status: Neuro function grossly intact. Vital Signs: Last Vital Signs Temp 35.8 C L 11/02/21 12:05 Pulse 90 11/02/21 12:15 Resp 18 11/02/21 12:15 BP 136/80 11/02/21 12:05 Pulse Ox 100 11/02/21 12:15 O2 Del Method Room Air 11/02/21 12:15 Pain score (VAS): 2 I/O: Intake & Output 11/01/21 11/02/21 11/02/21 23:59 07:59 15:59 Intake Total 1300 740 Output Total 550 700 500 Balance -550 600 240 Patient feedback: Patient satisfied with anesthetic care.
--- NOTE | 2021-11-02 14:54 | PC.NURSE ---
Report received from Primary RN that infant is bottle feeding formula and mother is undecided on if she would like to pump for a milk supply.
[2021-11-02 17:00] LABS: HIV 1/2 Ab P24 Ag Result Negative (Negative)
[2021-11-03] MEDS: HYDROcodone/acetaminophen (*CRX) 10-325 MG TABLET 1 TAB PO (01:17)
[2021-11-03] MEDS: IBUPROFEN 600 MG TABLET PO ×2 (01:18→08:02)
[2021-11-03] MEDS: POLYSACCHARIDE IRON COMPLEX 150 MG CAPSULE PO ×2 (01:23→11:21)
[2021-11-03] MEDS: DOCUSATE SODIUM 100 MG CAPSULE PO ×2 (01:23→11:21)
[2021-11-03 07:45] VITALS: BP 129/81; PULSE 86; RESP 16; TEMP 36.8; O2SAT 99
[2021-11-03] MEDS: HYDROcodone/acetaminophen (*CRX) 5-325 MG TABLET 1 TAB PO ×2 (08:02→11:20)
[2021-11-03] MEDS: MULTIVIT/MIN/PREN/FOL AC/IRON TABLET 1 TAB PO (08:02)
--- NOTE | 2021-11-03 08:29 | P.PNOB_ITS ---
OB - PN: Subj Subjective Date/time seen: 11/03/21 08:29 Interval history: She reports adequate pain control, ambulating without problems, no leg pain, tolerating regular diet. Positive flatus, no BM. Decreasing lochia. She has switched to bottle currently. Denies headache, scotomata or RUQ pain. Patient comments: pain well controlled and tolerating diet [place] baby status: bottle feeding well OB - PN: Obj Data Labs CBC & Chem 7: 11/02/21 04:52 11/01/21 08:48 Labs: Laboratory Results - last 24 hr 11/01/21 08:45 HIV 1&2 Ab/P24 Ag 4thGn Negative OB - PN A/P Assessment and Plan (1) Delivery by section using transverse incision of lower segment of uterus: Code(s): O82 - Encounter for delivery without indication Status: Acute Assessment and Plan: POD2 doing well. Blood pressures stable. No symptoms of pre-eclampsia. Request discharge home. Discharge precautions discussed. Plan Plan: discharge home Time Spent With Patient Time: Total time spent is greater than 50% in coordination of care (as documented) at patient's floor/unit and/or counseling patient: Exam Const: General: comfortable and no acute distress Eyes: General: appearance normal, both eyes and all related structures Resp: Effort & Inspection: normal respiratory effort GI: Other: incision c/d/i nontender abdomen no RUQ pain Extrem: General: no calf tenderness (2+ edema bilat)
--- NOTE | 2021-11-03 08:33 | PM.DS ---
DS: Admitting Diagnosis Discharge Date 11/03/2021 Admitting Diagnosis Medical induction of labor. Chronic hypertension. DS: Discharge Diagnosis Discharge Diagnosis (1) Delivery by section using transverse incision of lower segment of uterus: Code(s): O82 - Encounter for delivery without indication Status: Acute (2) Chronic hypertension in : Code(s): O10.919 - Unspecified pre-existing hypertension complicating , unspecified trimester Status: Acute DS: Summary Hospital Course Reason for hospitalization: Medical induction of labor Hospital Course: Patient admitted for medical induction of labor. Labor significant for failure to progress. She had an uncomplicated primary section. Post operatively she did well. No signs or symptoms of pre- eclampsia. She had adequate pain control, decreased lochia. She was ambulating without problems. Incision healing well. Baby was doing well. She was tolerating regular food and passing flatus. She requested discharge to home on POD2. Discharge precautions discussed. Time Spent with Patient Time attestation: Total time spent providing and/or coordinating discharge services: Exam Const: General: comfortable and no acute distress Eyes: General: appearance normal, both eyes and all related structures Resp: Effort & Inspection: normal respiratory effort GI: Other: incision c/d/i Extrem: General: no calf tenderness and edema Psych: Appearance: grossly normal DS: Data Data Completed and Pending Labs on day of discharge: Labs from last 24 hours 11/01/21 08:45 HIV 1&2 Ab/P24 Ag 4thGn Negative Discharge Plan Discharge Attending physician on discharge: Kenna Morrissey Consulting providers: Juan Jose Yuen Discharging Clinician: Erasmo Wilhelm Anticipated Discharge Date/Time: 11/03/21 08:39 Patient Disposition: Home, Self-Care Activity: may shower, no driving and pelvic rest Diet: low sodium Discharge Instructions: See discharge instruction sheet. Call if any severe headache not relieved with medication, white spots in vision, persistant right upper quadrant pain. Patient Instructions: Antibiotic Form, (DC) Stand Alone Forms: General Discharge Information Follow-up/Referrals: Kenna Morrissey MD [Physician] - Call for Appointment (Incision check in two weeks) Discharge Medications: New hydrocodone-acetaminophen 5-325 mg Tablet 1 tablet PO Q3H PRN (Reason: Moderate Pain (4-6)) Qty: 30 0RF Continued cholecalciferol (vitamin D3) 50 mcg (2,000 unit) capsule 50 mcg PO DAILY #2 Tablet 1 tablet PO HS Date of admission: 10/31/21 16:44 Primary Care Provider: Marc Parkinson Admitting Provider: Kenna Morrissey Attending physician on admission: Kenna Morrissey Condition: Stable
--- NOTE | 2021-11-03 10:15 | PC.NURSE ---
Patient viewed the discharge video Mother & Baby Care, The First Two Weeks . Patient was given the opportunity and encouraged to ask questions. Patient verbalized understanding of information shared and has been given the mother/baby guide for home reference.
[2021-11-05 10:31] VITALS: BP 139/86; PULSE 89; RESP 20; TEMP 37.2; O2SAT 99
== END 2021-11-03 12:26 | disposition home or self-care (01) | DRG 788 ==
LOC: ANHLDR 11-01 11:50 → ANHOB2 11-03 08:41 → ANHLDR 11-06 11:46
PROVIDERS: Admitting Provider Student in an Organized Health Care Education/Training Program; PCP Internal Medicine; Visit Provider Obstetrics & Gynecology
PROC: 10D00Z1 Extraction of Products of Conception, Low, Open Approach (ICD-10-PCS; CPT 59514; principal; 2021-11-01 12:00)
DX: O10.92 Unspecified pre-existing hypertension complicating childbirth (principal); O69.81X0 Labor and delivery complicated by cord around neck, without compression, not applicable or unspecified; O76 Abnormality in fetal heart rate and rhythm complicating labor and delivery; Z3A.39 39 weeks gestation of pregnancy; Z37.0 Single live birth; Z14.8 Genetic carrier of other disease
CPT/HCPCS: 36415; 80053; 84112; 84550; 85025; 86592; 86703; 86850; 86900; 86901; A9270; G0432; J0131; J0690; J1100; J1885; J2270; J2274; J2370; J2405; J2590; J2795; J7120

== ENCOUNTER 2021-11-11 18:06 | Emergency (ER) | payer OTHER, SELFPAY ==
--- NOTE | 2021-11-11 18:53 | ED.WOUNDLAC ---
HPI - Wound/Laceration General Chief Complaint: Wound/Laceration Stated Complaint: infection skin/passed large blood clot Time Seen by Provider: 11/11/21 18:09 Source: patient and RN notes reviewed Mode of arrival: ambulatory Limitations: no limitations History of Present Illness HPI narrative: Post C/S healing wound had small blood clot. no acute bleeding in the ED. Onset (ago): week(s) (2) Location: abdomen Place: home Patient tetanus UTD: Yes Associated symptoms: none Related Data Home Medications Medication Instructions Recorded Confirmed No Home Medications 11/11/21 11/11/21 Allergies Allergy/AdvReac Type Severity Reaction Status Date / Time No Known Allergies Allergy Verified 11/15/21 10:50 Review of Systems Review of Systems: All systems reviewed & are unremarkable except as noted in HPI and below Constitutional: Constitutional: Reports no additional constitutional complaints Eyes: Eyes: Reports no additional eye complaints ENT: Reports system reviewed and no additional complaints, except as documented Cardiovascular: Cardiovascular: Reports no additional cardiovascular complaints Respiratory: Respiratory: Reports no additional respiratory complaints Gastrointestinal: Gastrointestinal: Reports no additional gastrointestinal complaints Comments: abdominal wall C/S healing wound. Genitourinary: Genitourinary: Reports no additional female genitourinary complaints Musculoskeletal: Musculoskeletal: Reports no additional musculoskeletal complaints and Denies joint swelling Integumentary/Breasts: Skin/Breast: Reports system reviewed and no additional complaints, except as docu Neurologic: Reports system reviewed and no additional complaints, except as documented Psychiatric: Psychiatric: Reports no additional psychiatric complaints Endocrine: Endocrine: Reports no additional endocrine complaints Hematologic/Lymphatic: Hematologic/Lymphatic: Reports no additional hematologic/lymphatic complaints Allergic/Immunologic: Allergic/Immunologic: Reports no additional allergic/immunologic complaints FOR[facility]LY [facility] Past Medical History Medical History Carrier of fragile X chromosome Delivery by section using transverse incision of lower segment of uterus Surgical History Surgical History Previous section 11/01/21 [place] teeth removed Family History Family History Grandparent Ovarian cancer Social History Social History Smoking status: Never smoker Alcohol intake: former Substance use: never Gender identity (if verbalized by the patient): Female Spiritual care concerns: No Agree to blood products: Yes Exam Const: General: no acute distress Nutritional Appearance: well nourished Orientation/consciousness: patient oriented x3 Limitations: no limitations HENMT: Head: normal to inspection Ears: external ears normal, TM's normal bilaterally and EAC's normal General nose exam: Normal external nose present and Normal nares present Face and sinus: normal facial exam and sinuses nontender Mouth: Yes Normal oral and palatal mucosa present and Yes moist mucous membranes Teeth and gingiva: dentition normal Throat: posterior oropharynx normal Eyes: Conjunctivae: conjunctivae normal Pupils: Equal, round and reactive pupils present EOM: EOMs intact bilaterally Neck: Neck: normal visual inspection, no lymphadenopathy and no meningeal signs Chest: Chest palpation & inspection: normal inspection of the chest Resp: Effort & Inspection: normal respiratory effort Auscultation: clear to auscultation bilaterally Cardio: Rate: regular rate Rhythm: regular rhythm GI: GI Palp: Yes Soft to palpation and No Tenderness to palpation present (GI) Auscultation:
[2021-11-11 19:09] VITALS: BP 152/87; PULSE 95; RESP 20; TEMP 35.9; O2SAT 98
== END 2021-11-11 19:15 | disposition home or self-care (01) ==
PROVIDERS: Emergency Provider Emergency Medicine; PCP Internal Medicine
DX: T14.8XXA Other injury of unspecified body region, initial encounter (principal); Z48.00 Encounter for change or removal of nonsurgical wound dressing
CPT/HCPCS: 99282

== ENCOUNTER 2022-03-19 10:45 | Outpatient (CLI) | payer BC, OTHER, SELFPAY ==
[2022-03-19 11:01] LABS: Basophils Absolute Auto 0.03 K/mm3 (0.00-0.10); Basophils Percent Auto 0.6 % (0.0-1.0); Eosinophils Absolute Auto 0.08 K/mm3 (0.02-0.50); Eosinophils Percent Auto 1.7 % (1.0-6.0); Hematocrit 39.8 % (35.0-49.0); Hemoglobin 12.6 g/dL (12.0-15.0); Immature Granulocyte Absolute 0.01 K/mm3 (0.00-0.00); Immature Granulocyte Percent A 0.2 % (0.0-0.0); Lymphocytes Absolute Auto 1.68 K/mm3 (1.10-4.50); Lymphocytes Percent Auto 34.8 % (18.0-42.0); Mean Corpuscular HGB Conc 31.7 g/dL (32.0-36.0); Mean Corpuscular Volume 79.1 fL (78.0-102.0); Monocytes Absolute Auto 0.42 K/mm3 (0.10-0.90); Monocytes Percent Auto 8.7 % (2.0-11.0); Neutrophils Absolute Auto 2.6 K/mm3 (1.7-7.2); Platelet Count Result 266 K/mm3 (150-420); Red Blood Count 5.03 M/mm3 (4.20-5.40); Red Cell Distribution Width 14.6 % (11.6-14.4); White Blood Count 4.8 K/mm3 (4.8-10.8)
[2022-03-19 11:02] LABS: Appearance Urine Cloudy (Clear); Bilirubin Urine 1+ (Negative); Blood Urine 3+ (Negative); Glucose Urine UA Negative (Negative); Ketones Urine Trace (Negative); Leukocyte Esterase Ur Trace LEU/UL (Negative); Nitrate Urine Positive (Negative); Protein Urine 2+ (Negative); Specific Grav Ur >= 1.030 (1.010-1.020)
[2022-03-19 11:08] LABS: Add Urine Microscopic? YES; Bacteria Urine 1+ /hpf; Color Urine Dark Red (Yellow); RBC Urine >75 /hpf (0-2); Squamous Epithelial Cell Urine Few /hpf (Few); WBC Urine 0-3 /hpf (0-3)
[2022-03-19 11:44] LABS: Alanine Aminotransferase 60 U/L (14-59); Alkaline Phosphatase 69 U/L (46-116); Anion Gap 9 mmol/L (8-16); Aspartate Amino Transferase 39 U/L (15-37); Bilirubin,Total 0.6 mg/dL (0.00-1.00); Blood Urea Nitrogen 13 mg/dL (7-18); Calcium 9.2 mg/dL (8.5-10.1); Carbon Dioxide 26 mmol/L (21-32); Chloride 105 mmol/L (98-108); Cholesterol 162 mg/dL (0-200); Estimated Glomerular Filt Rate > 60; Free T4 Free Thyroxine 0.92 ng/dL (0.76-1.46); Glucose 91 mg/dL (70-99); HDL Direct 35 mg/dL (40-60); LDL Cholesterol Calculated 99 mg/dL (<130); Osmolality Calculated 290 mOsm/kg (285-295); Potassium 4.2 mmol/L (3.5-5.1); Sodium 140 mmol/L (136-145); Thyroid Stimulating Hormone 1.18 uIU/mL (0.36-3.74); Total Protein 6.9 g/dL (6.4-8.2); Triglycerides 138 mg/dL (0-150)
[2022-03-21 16:57] LABS: Vitamin D 25 Hydroxy 20 ng/mL (30-100)
== END 2022-03-19 10:46 | disposition home or self-care (01) ==
LOC: CHSLAB 10:49
PROVIDERS: PCP Internal Medicine; Visit Provider Nurse Practitioner Family
DX: Z00.00 Encounter for general adult medical examination without abnormal findings (principal); I10 Essential (primary) hypertension; E55.9 Vitamin D deficiency, unspecified; F32.A Depression, unspecified
CPT/HCPCS: 36415; 80053; 80061; 81001; 82306; 84439; 84443; 85025; 87086; 87088

== ENCOUNTER 2023-01-20 09:22 | Outpatient (CLI) | payer BC, OTHER, SELFPAY ==
[2023-01-20 09:45] LABS: Appearance Urine Clear (Clear); Bilirubin Urine Negative (Negative); Blood Urine Negative (Negative); Color Urine Light Yellow (Yellow); Glucose Urine UA Negative (Negative); Ketones Urine Negative (Negative); Leukocyte Esterase Ur Negative LEU/UL (Negative); Nitrate Urine Negative (Negative); Protein Urine Negative (Negative); Specific Grav Ur 1.025 (1.010-1.020); Urobilinogen Urine 0.2 mg/dL (0.2-1.0)
[2023-01-20 09:46] LABS: Add Urine Microscopic? NO
== END 2023-01-20 09:23 | disposition home or self-care (01) ==
LOC: CHSLAB 09:24
PROVIDERS: PCP Family Medicine; Visit Provider Family Medicine
DX: R30.0 Dysuria (principal)
CPT/HCPCS: 81003

== ENCOUNTER 2023-06-09 10:32 | Outpatient (CLI) | payer BC, OTHER, SELFPAY ==
[2023-06-09 10:57] LABS: Basophils Percent Auto 0.7 % (0.2-1.2); Eosinophils Absolute Auto 0.1 K/mm3 (0-0.3); Eosinophils Percent Auto 2.5 % (0-4.4); Hematocrit 41.5 % (37.0-47.0); Immature Granulocyte Absolute 0.03 K/mm3 (0.00-0.031); Immature Granulocyte Percent A 0.5 % (0-0.5); Lymphocytes Absolute Auto 1.67 K/mm3 (0.9-3.2); Lymphocytes Percent Auto 29.7 % (18.3-44.2); Mean Corpuscular HGB Conc 31.3 g/dl (32-36); Mean Corpuscular Hemoglobin 25.4 pg (26-34); Mean Corpuscular Volume 81.1 fl (80-100); Mean Platelet Volume 9.7 fl (7.4-10.4); Monocytes Absolute Auto 0.4 K/mm3 (0.1-0.6); Monocytes Percent Auto 6.4 % (2.6-8.5); Neutrophils Absolute Auto 3.4 K/mm3 (1.3-6.7); Neutrophils Percent Auto 60.2 % (45.5-73.1); Platelet Count Result 267 k/mm3 (150-375); Red Blood Count 5.12 M/mm3 (4.2-5.4); Red Cell Distribution Width 14.4 % (11.5-14.5); White Blood Count 5.6 K/mm3 (4.5-10.0)
[2023-06-09 11:10] LABS: Cholesterol 174 mg/dL (0-200); HDL Direct 41 mg/dL; Triglycerides 124 mg/dL (<150)
[2023-06-09 11:21] LABS: LDL Cholesterol Direct 114 mg/dL
[2023-06-09 11:38] LABS: Free T4 Free Thyroxine 1.04 ng/mL (0.78-2.19)
[2023-06-11 12:20] LABS: DHEA-Sulfate 96 mcg/dL (18-391)
[2023-06-12 06:05] LABS: Insulin Level Total 31.5 uIU/mL (<=18.4); LH 7.8 mIU/mL (***)
[2023-06-12 11:42] LABS: Testosterone Total 19 ng/dL (2-45)
== END 2023-06-09 10:33 | disposition home or self-care (01) ==
LOC: ANHLAB 10:34
PROVIDERS: PCP Family Medicine; Visit Provider Nurse Practitioner Family
DX: N92.6 Irregular menstruation, unspecified (principal); L68.0 Hirsutism
CPT/HCPCS: 36415; 80061; 82627; 83001; 83002; 83498; 83525; 84146; 84402; 84403; 84439; 84443; 85025

== ENCOUNTER 2023-08-04 13:43 | Emergency (ER) | payer BC, OTHER, SELFPAY ==
[2023-08-04 13:43] VITALS: BP 153/89; PULSE 104; RESP 18; TEMP 36.3; O2SAT 99
--- NOTE | 2023-08-04 13:52 | ED.DENTAL ---
HPI - Dental/Oral General Chief complaint: Dental/Oral Stated complaint: left sided facial swelling Time Seen by Provider: 08/04/23 13:52 Source: patient Mode of arrival: ambulatory Limitations: no limitations History of Present Illness HPI Narrative: Patient is a 27-year-old female with a left posterior tongue white knee and painful area for the past 2 days. She does not have any bad teeth problems at this time and she did not bite her tongue. There is no trauma. Onset (ago): day(s) (2) Duration: constant Severity: moderate Severity scale (1-10): 5 Relieving factors: nothing Exacerbating factors: nothing Associated symptoms: tongue swelling and pain with swallowing Treatment prior to arrival: none Related Data Allergies Allergy/AdvReac Type Severity Reaction Status Date / Time No Known Allergies Allergy Verified 07/01/23 10:53 Review of Systems Review of Systems: All systems reviewed & are unremarkable except as noted in HPI and below Constitutional: Constitutional: Reports no additional constitutional complaints Eyes: Eyes: Reports no additional eye complaints ENT: Reports system reviewed and no additional complaints, except as documented Cardiovascular: Cardiovascular: Reports no additional cardiovascular complaints Respiratory: Respiratory: Reports no additional respiratory complaints Gastrointestinal: Gastrointestinal: Reports no additional gastrointestinal complaints Genitourinary: Genitourinary: Reports no additional female genitourinary complaints Musculoskeletal: Musculoskeletal: Reports no additional musculoskeletal complaints Integumentary/Breasts: Skin/Breast: Reports system reviewed and no additional complaints, except as docu Neurologic: Reports system reviewed and no additional complaints, except as documented Psychiatric: Psychiatric: Reports no additional psychiatric complaints Endocrine: Endocrine: Reports no additional endocrine complaints Hematologic/Lymphatic: Hematologic/Lymphatic: Reports no additional hematologic/lymphatic complaints Allergic/Immunologic: Allergic/Immunologic: Reports no additional allergic/immunologic complaints PMFSH Past Medical History Medical History Carrier of fragile X chromosome Delivery by section using transverse incision of lower segment of uterus Surgical History Surgical History Previous section 11/01/21 [place] teeth removed Family History Family History Grandparent Ovarian cancer Social History Social History Smoking status: Never smoker Alcohol intake: former Substance use: never Living arrangements: with family Gender identity (if verbalized by the patient): Female Spiritual care concerns: No Agree to blood products: Yes Exam Const: General: healthy appearing Nutritional Appearance: well nourished Orientation/consciousness: patient oriented x3 Limitations: no limitations HENMT: Head: normal to inspection Ears: external ears normal Face/Nose/Sinus: Normal external nose present Face and sinus: normal facial exam and sinuses nontender Mouth: Yes Normal oral and palatal mucosa present and Yes moist mucous membranes Teeth and gingiva: dentition normal Throat: posterior oropharynx normal Other: Left side of the tongue posterior has a 0.5 x 0.5 cm white patch which is tender Eyes: Conjunctivae: conjunctivae normal Pupils: Equal, round and reactive pupils present EOM: EOMs intact bilaterally Neck: Neck: normal visual inspection Chest: Chest palpation & inspection: normal inspection of the chest Resp: Effort & Inspection: normal respiratory effort and not labored Auscultation: clear to auscultation bilaterally Cardio: Rate: regular rate Rhythm: regular rhythm Heart lorie
[2023-08-04 14:58] VITALS: BP 140/87; PULSE 99; RESP 16; TEMP 37.1; O2SAT 99
== END 2023-08-04 14:58 | disposition home or self-care (01) ==
PROVIDERS: Emergency Provider Emergency Medicine; PCP Family Medicine
DX: B37.0 Candidal stomatitis (principal)
CPT/HCPCS: 99283

== ENCOUNTER 2023-09-26 09:39 | Emergency (ER) | payer BC, OTHER, SELFPAY ==
--- NOTE | 2023-09-26 09:44 | ED.URI ---
HPI - URI/Sore Throat General Chief Complaint: Upper Respiratory Infection Stated Complaint: Cough/Fever/Chills Time Seen by Provider: 09/26/23 09:57 Source: patient, RN notes reviewed and old records reviewed Mode of arrival: ambulatory Limitations: no limitations History of Present Illness HPI Narrative: patient presents with complaints of 2 days of fever, chills, body aches, sore throat. She reports that she has taken to COVID test at home, both have been negative. The last 1 was this morning just prior to arrival. She has been taking ibuprofen and [id number] allergy medicine for her symptoms with poor relief. She reports that the pain is worst on the left side of her throat, aggravated by swallowing. She is able to manage own secretions, no drooling or respiratory distress. She voices no other concerns or complaints today. MD elicited complaint: fever, cough and sore throat Onset (ago): day(s) (2) Consistency: constant Relieving factors: NSAID Associated symptoms: myalgias and headache Treatments prior to arrival: ibuprofen Related Data Allergies Allergy/AdvReac Type Severity Reaction Status Date / Time No Known Allergies Allergy Verified 09/26/23 09:49 Review of Systems Review of Systems: All systems reviewed & are unremarkable except as noted in HPI and below Constitutional: Constitutional: Reports no additional constitutional complaints ENT: Reports system reviewed and no additional complaints, except as documented, Reports as per HPI and Reports sore throat Cardiovascular: Cardiovascular: Reports no additional cardiovascular complaints Respiratory: Respiratory: Reports no additional respiratory complaints Gastrointestinal: Gastrointestinal: Reports no additional gastrointestinal complaints Musculoskeletal: Musculoskeletal: Reports myalgias Neurologic: Reports headache(s) PMFSH Past Medical History Medical History Carrier of fragile X chromosome Delivery by section using transverse incision of lower segment of uterus Surgical History Surgical History Previous section 11/01/21 [place] teeth removed Family History Family History Grandparent Ovarian cancer Social History Social History Smoking status: Never smoker Alcohol intake: former Substance use: never Living arrangements: with family Gender identity (if verbalized by the patient): Female Spiritual care concerns: No Agree to blood products: Yes Comments At the time of my signature, I reviewed and agree with the nursing past medical, surgical, social, and family history. There is no relevant family history pertinent to the patient complaint. Exam Const: General: cooperative, no acute distress, alert and awake Orientation/consciousness: oriented to person, oriented to place and oriented to time HENMT: Head: normal to inspection Ears: TM's normal bilaterally Face/Nose/Sinus: No nasal discharge present Mouth: Yes Normal oral and palatal mucosa present and Yes moist mucous membranes Throat: abnormal tonsil on the left ( Left tonsil with large stone, diffusely erythematous and hypertrophied) Resp: Effort & Inspection: normal respiratory effort and able to speak in complete sentences Auscultation: clear to auscultation bilaterally, no crackles, no rales, no rhonchi and no wheezes Cardio: Palpation: normal PMI Rate: regular rate Rhythm: regular rhythm Heart sounds: S1 normal heart sound present and S2 normal heart sound present Neuro: General: oriented to person, oriented to place and oriented to time Cranial nerves: Yes CN's II-XII intact bilaterally Psych: Appearance: grossly normal Thought process: Normal thought process present Insight: Good insight present (Psych) Judgement
[2023-09-26 09:50] VITALS: BP 144/93; PULSE 125; RESP 16; TEMP 37.4; O2SAT 100
[2023-09-26 10:04] LABS: EDSTREPNEGPOS1 Presumptive Negative
== END 2023-09-26 10:06 | disposition home or self-care (01) ==
PROVIDERS: Emergency Provider Nurse Practitioner Family; PCP Family Medicine
DX: J35.8 Other chronic diseases of tonsils and adenoids (principal)
CPT/HCPCS: 87081; 87880; 99213; G0463

== ENCOUNTER 2023-09-28 13:37 | Emergency (ER) | payer BC, OTHER, SELFPAY ==
--- NOTE | ~2023-09-28 | XR_ITS ---
XR chest 2V Ordering provider: Asya Martinez NP History: 28 years Female with . cough with reported wheezing . Comparison: September 16, 2018 FINDINGS: MEDIASTINUM: The cardiac silhouette is not enlarged. LUNGS: No effusions or pneumothorax. Opacification in the lingula and adjacent left upper lobe is see n suggestive of pneumonia. OTHER: No free air under the diaphragm. IMPRESSION: upper lobe and lingula pneumonia. Reviewed, dictated and finalized at location A.
[2023-09-28 13:53] VITALS: BP 119/74; PULSE 97; RESP 16; TEMP 36.6; O2SAT 98
--- NOTE | 2023-09-28 14:16 | ED.URI ---
HPI - URI/Sore Throat General Chief Complaint: Upper Respiratory Infection Stated Complaint: COUGH/WHEEZING/FEVER Time Seen by Provider: 09/28/23 14:10 Source: patient, family, RN notes reviewed and old records reviewed Mode of arrival: ambulatory Limitations: no limitations History of Present Illness HPI Narrative: 28 year old female accompanied by mother presents to express care with complaints of productive cough of polanco greenish mucous expectorated with some wheezing when sleeping and also temp up to 103.8F the highest since being seen in clinic on Friday. Patient reports that she has bee taking the antibiotics and Ibuprofen as prescribed on Friday with no improvement in her condition. MD elicited complaint: fever, cough, rhinorrhea, nasal congestion and other (wheezing) Onset (ago): day(s) (3 days) Severity: moderate Description of mucous: green (grayish) Associated symptoms: fever and cough (productive with wheezing) Treatments prior to arrival: ibuprofen and antibiotics Related Data Allergies Allergy/AdvReac Type Severity Reaction Status Date / Time No Known Allergies Allergy Verified 09/26/23 09:49 Review of Systems Review of Systems: CONSTITUTIONAL: Reports malaise, chills, sweats, or fever. EYES: Denies visual changes, redness, or discharge. ENT: Reports rhinorrhea, congestion,no sinus pain, no otalgia and no sore throat. CARDIOVASCULAR: upper chest aches with cough, no palpitations, or edema. RESPIRATORY: Reports cough.? Denies dyspnea. GASTROINTESTINAL: Denies abdominal pain, nausea, vomiting, diarrhea SKIN: Denies rash or itching. MUSCULOSKELETAL: Denies myalgia. NEUROLOGIC: Denies headache. All systems reviewed & are unremarkable except as noted in HPI and below PMFSH Past Medical History Medical History Carrier of fragile X chromosome Delivery by section using transverse incision of lower segment of uterus Surgical History Surgical History Previous section 11/01/21 [place] teeth removed Family History Family History Grandparent Ovarian cancer Social History Social History Smoking status: Never smoker Alcohol intake: former Substance use: never Living arrangements: with family Gender identity (if verbalized by the patient): Female Spiritual care concerns: No Agree to blood products: Yes Comments At time of signature, agree with nursing past medical, surgical, social and family history. There is no relevant family history pertinent to the presenting complaint Exam Narrative: GENERAL: Well-appearing, well-nourished,obese, and in no acute distress. HEAD: Normocephalic EYES: PERRLA, conjunctivae clear ENT: Nares clear, turbinates edematous and erythematous, clear discharge. Mucous membranes moist. TM pearly polanco with dull light reflex bilaterally; no tragal tenderness. Oropharynx erythematous without lesions. Tonsils not enlarged and without exudate, no drooling, no hoarseness, no trismus, uvula midline.some post nasal drainage NECK: Supple. No lymphadenopathy CHEST: coarse breath sound left lung on auscultation, breath sounds equal. No wheezing, rhonchi, rales, or stridor. No respiratory distress, speaks in full sentences.acute cough,SAO2 98% on room air HEART: Regular rate and rhythm. No murmur heard. SKIN: Warm, dry, no rash. NEURO: Alert and oriented x3. PSYCH: Normal mood and affect Course Course Emergency Course: Patient is aware of diagnosis, understands and agrees to treatment plan.? Anticipatory guidance given.? Patient agrees to follow-up as directed and is aware of reasons to seek care at the emergency department. Portions of this record may have been created with voice recognition software Xi
== END 2023-09-28 15:03 | disposition home or self-care (01) ==
PROVIDERS: Emergency Provider Registered Nurse; PCP Family Medicine
DX: J18.1 Lobar pneumonia, unspecified organism (principal)
CPT/HCPCS: 71046; 99213; G0463

== ENCOUNTER 2023-10-20 12:51 | Outpatient (CLI) | payer BC, OTHER, SELFPAY ==
[2023-10-20 13:00] LABS: Add Urine Microscopic? YES; Appearance Urine Clear (Clear); Bilirubin Urine Negative (Negative); Blood Urine 1+ (Negative); Color Urine Light Yellow (Yellow); Glucose Urine UA Negative (Negative); Ketones Urine Negative (Negative); Leukocyte Esterase Ur 2+ LEU/UL (Negative); Nitrate Urine Negative (Negative); Protein Urine Negative (Negative); Urobilinogen Urine 0.2 mg/dL (0.2-1.0)
[2023-10-20 13:12] LABS: Bacteria Urine Rare /hpf; Squamous Epithelial Cell Urine Few /hpf (Few); WBC Urine 16-20 /hpf (0-3)
== END 2023-10-20 12:52 | disposition home or self-care (01) ==
LOC: CHSLAB 12:52
PROVIDERS: PCP Nurse Practitioner Family; Visit Provider Nurse Practitioner Family
DX: Z87.898 Personal history of other specified conditions (principal)
CPT/HCPCS: 81001; 87086; 87088

== ENCOUNTER 2023-11-18 15:26 | Outpatient (CLI) | payer BC, SELFPAY ==
[2023-12-08 09:33] LABS: Fragile X Methylation Pattern PERFORMED
== END 2023-11-18 15:27 | disposition home or self-care (01) ==
LOC: CHSLAB 15:27
PROVIDERS: PCP Family Medicine; Visit Provider Family Medicine
DX: Z82.79 Family history of other congenital malformations, deformations and chromosomal abnormalities (principal)
CPT/HCPCS: 36415; 81243; 81244

== ENCOUNTER 2024-01-01 12:11 | Outpatient (NON) | payer BC, SELFPAY ==
[2024-01-01 12:21] LABS: Add Urine Microscopic? NO; Appearance Urine Clear (Clear); Bilirubin Urine Negative (Negative); Blood Urine Negative (Negative); Color Urine Light Yellow (Yellow); Glucose Urine UA Negative (Negative); Ketones Urine Negative (Negative); Leukocyte Esterase Ur Negative LEU/UL (Negative); Nitrate Urine Negative (Negative); Protein Urine Negative (Negative); Specific Grav Ur 1.025 (1.010-1.020); Urobilinogen Urine 0.2 mg/dL (0.2-1.0); pH Urine 5.5 (5.0-8.0)
== END 2024-01-01 12:12 | disposition home or self-care (01) ==
PROVIDERS: Visit Provider Nurse Practitioner Family
DX: Z87.898 Personal history of other specified conditions (principal)
CPT/HCPCS: 81003

== ENCOUNTER 2024-03-15 12:51 | Outpatient (CLI) | payer BC, SELFPAY | END 2024-03-15 12:52 | disposition home or self-care (01) | LOC: CHSCARD 12:53 | PROVIDERS: PCP Family Medicine; Visit Provider Family Medicine | DX: R00.0 Tachycardia, unspecified (principal) | CPT/HCPCS: 93246 ==

== ENCOUNTER 2024-04-26 12:01 | Outpatient (NON) | payer BC, SELFPAY ==
[2024-04-26 12:14] LABS: Add Urine Microscopic? YES; Bilirubin Urine Negative (Negative); Blood Urine 3+ (Negative); Color Urine Light Yellow (Yellow); Glucose Urine UA Negative (Negative); Ketones Urine Negative (Negative); Leukocyte Esterase Ur 1+ LEU/UL (Negative); Nitrate Urine Negative (Negative); Protein Urine Trace (Negative); Specific Grav Ur 1.025 (1.010-1.020); Urobilinogen Urine 0.2 mg/dL (0.2-1.0); pH Urine 5.5 (5.0-8.0)
[2024-04-26 12:22] LABS: Appearance Urine Sl Cloudy (Clear); Bacteria Urine 3+ /hpf; Squamous Epithelial Cell Urine Moderate /hpf (Few); WBC Urine >75 /hpf (0-3)
--- OUTSIDE RECORDS SUMMARY | 2024-04-26 13:47 | XMS_ITS | Clinical Summary ---
Author Organization [facility] Address [address] [place] [phone] Phone Care Team Providers Care Orchid Superintendent Name Role Phone Unavailable Primary Care Provider Unavailabl e Social History Tobacco Use Types Packs/Day Years Used Date Smoking Tobacco: Never Assessed Comments Unknown Sex and Gender Information Value Date Recorded Sex Assigned at Not on file Legal Sex Female 9:07 AM CDT Gender Identity Not on file Sexual Orientation Not on file Plan of Treatment Health Maintenance Due Date Last Done Comments HPV VACCINES (1 - 3-dose series) 2012 DTAP/TDAP/TD VACCINES (1 - Tdap) 2016 HEPATITIS B VACCINES (1 of 3 - 19+ 3-dose series) 08/31 CERVICAL CANCER SCREENING 2018 INFLUENZA VACCINE (#1) 2023 Insurance [facility] CHOICE [id number] [address] O OPEN ACCESS
--- OUTSIDE RECORDS SUMMARY | 2024-04-26 13:47 | XMS_ITS | Patient Health Summary ---
Author Organization [facility] Address [address] [place] [address] Care Team Providers Care Projection Engineer Name Role Phone Unavailable Primary Care Provider Unavailabl e Note from [facility],non-owned Affiliates and Associated Physician Practices is amultiple site organization consisting of ambulatory clinics and hospital sitesin [place], [place], [place] and [place]. This disclosure is being madepursuant to the Care Everywhere program and may not contain all information available regarding this patient. Last updated 17.[facility] [place] Social History Tobacco Use Types Packs/Day Years Used Date Smoking Tobacco: Never Assessed Sex and Gender Information Value Date Recorded Sex Assigned at Not on file Gender Identity Not on file Sexual Orientation Not on file
--- OUTSIDE RECORDS SUMMARY | 2024-04-26 13:47 | XMS_ITS | Clinical Summary ---
Author Organization [facility] [employer] Address [address] [place] [address] Care Team Providers Care Senior Oracle Applications Developer Name Role Phone Unavailable Primary Care Provider Unavailabl e Source Comments [facility] [employer],non-owned Affiliates and Associated Physician Practices is amultiple site organization consisting of ambulatory clinics and hospital sitesin [place], [place], [place] and [place]. This disclosure is being madepursuant to the Care Everywhere program and may not contain all information available regarding this patient. Last updated 17.[facility] [employer] Social History Tobacco Use Types Packs/Day Years Used Date Smoking Tobacco: Never Assessed Sex and Gender Information Value Date Recorded Sex Assigned at Not on file Gender Identity Not on file Sexual Orientation Not on file Plan of Treatment Health Maintenance Due Date Last Done Comments PAP SMEAR 1997 HIV SCREENING 2012 HPV VACCINE (1 - 3-dose series) 2012 HEPATITIS C SCREENING 09/08/2015 DTAP/TDAP/TD VACCINES (1 - Tdap) 2016 HEPATITIS B VACCINE (1 of 3 - 19+ 3-dose series) 2016 COVID-19 VACCINE ( - 2023-2 5 season) 2023 INFLUENZA VACCINE (#1) 2023 DEPRESSION SCREENING 03/03/2024 ZOSTER VACCINE (1 of 2) 09/13/2047 HIB VACCINE Aged Out No longer eligi ble based on patient's age to complete this topic MENINGOCOCCAL (Group B) VACCINE Aged Out No longer eligible based on patient's age to complete this topic MENINGOCOCCAL VACCINE Aged Out No natalio jasvir eligible based on patient's age to complete this topic PNEUMOCOCCAL VACCINE Aged Out No long er eligible based on patient's age to complete this topic
--- OUTSIDE RECORDS SUMMARY | 2024-04-26 13:47 | XMS_ITS | Referral Summary ---
Author Organization [facility] Address [address] [place] [address] [place] [address] Care Team Providers Care Medical Billing And Coding Specialist Name Role Phone Unavailable Primary Care Provider Unavailabl e Source Comments [facility],non-[facility] Affiliates and Associated Physician Practices is amultiple site organization consisting of ambulatory clinics and hospital sitesin [place], [place], [place] and [place]. This disclosure is being madepursuant to the Care Everywhere program and may not contain all information available regarding this patient. Last updated 17.[facility] [employer] Social History Tobacco Use Types Packs/Day Years Used Date Smoking Tobacco: Never Assessed Sex and Gender Information Value Date Recorded Sex Assigned at Not on file Gender Identity Not on file Sexual Orientation Not on file Plan of Treatment Not on file
== END 2024-04-26 12:02 | disposition home or self-care (01) ==
LOC: CHSLAB 12:02
PROVIDERS: PCP Nurse Practitioner Family; Visit Provider Nurse Practitioner Family
DX: R39.9 Unspecified symptoms and signs involving the genitourinary system (principal)
CPT/HCPCS: 81001; 87086

== ENCOUNTER 2024-04-30 15:49 | Outpatient (CLI) | payer BC, SELFPAY ==
[2024-05-03 16:48] LABS: Bacterial Vaginosis NEGATIVE (NEGATIVE)
== END 2024-04-30 15:50 | disposition home or self-care (01) ==
PROVIDERS: PCP Nurse Practitioner Family; Visit Provider Nurse Practitioner Family
DX: R39.9 Unspecified symptoms and signs involving the genitourinary system (principal)
CPT/HCPCS: 81513; 87102; 87206

== ENCOUNTER 2024-05-31 16:28 | Outpatient (NON) | payer BC, SELFPAY ==
[2024-05-31 16:57] LABS: Bilirubin Urine 1+ (Negative); Blood Urine 3+ (Negative); Glucose Urine UA Trace (Negative); Ketones Urine Trace (Negative); Leukocyte Esterase Ur 2+ LEU/UL (Negative); Nitrate Urine Positive (Negative); Protein Urine 2+ (Negative)
[2024-05-31 17:21] LABS: Add Urine Microscopic? YES; Appearance Urine Cloudy (Clear); Bacteria Urine 2+ /hpf; RBC Urine >75 /hpf (0-2); Squamous Epithelial Cell Urine Few /hpf (Few)
[2024-05-31 17:22] LABS: Color Urine Dark Orange (Yellow)
--- OUTSIDE RECORDS SUMMARY | 2024-05-31 17:36 | XMS_ITS | Clinical Summary ---
Author Organization [facility] Address [address] [place] [phone] Phone Care Team Providers Care Home Health Travel Pt Name Role Phone Unavailable Primary Care Provider [...] 3-dose series) 08/31 CERVICAL CANCER SCREENING 2018 HPV/Cotest (21-29) 2018 PAP SMEAR 2018 INFLUENZA VACCINE (#1) 2023 Insurance [facility] CHOICE [id number] [employer] O OPEN ACCESS
--- OUTSIDE RECORDS SUMMARY | 2024-05-31 17:36 | XMS_ITS | Clinical Summary ---
Author Organization [facility] [employer] Address [address] [place] [address] Care Team Providers Care Mixing Place Supervisor Name Role Phone Unavailable Primary Care Provider Unavailabl e Source Comments [facility],non-owned Affiliates and Associated Physician Practices is amultiple site organization consisting of ambulatory clinics and hospital sitesin [place], [place]. This disclosure is being madepursuant to the Care Everywhere program and may not contain all information available regarding this patient. Last updated 17.[facility] Social History Tobacco Use Types Packs/Day Years [...] to complete this topic MENINGOCOCCAL (Group B) VACC INE SHARED DECISION-MAKING Aged Out No longer eligibl e based on patient's age to complete this topic MENINGOCOCCAL GROUPS A/C/Y/W VACCINE Aged Out No longer eligible b ased on patient's age to complete this topic PNEUMOCOCCAL VACCINE Aged Out No long er eligible based on patient's age to complete this topic
== END 2024-05-31 16:29 | disposition home or self-care (01) ==
LOC: CHSLAB 16:34
PROVIDERS: PCP Nurse Practitioner Family; Visit Provider Nurse Practitioner Family
DX: R39.9 Unspecified symptoms and signs involving the genitourinary system (principal)
CPT/HCPCS: 81001; 87086

== ENCOUNTER 2024-06-08 14:05 | Outpatient (CLI) | payer BC, SELFPAY ==
[2024-06-08 14:33] LABS: Add Urine Microscopic? YES; Appearance Urine Clear (Clear); Bilirubin Urine Negative (Negative); Blood Urine 3+ (Negative); Color Urine Light Yellow (Yellow); Glucose Urine UA Negative (Negative); Ketones Urine Negative (Negative); Leukocyte Esterase Ur 3+ LEU/UL (Negative); Nitrate Urine Negative (Negative); Protein Urine 1+ (Negative); Specific Grav Ur 1.015 (1.010-1.020); Urobilinogen Urine 0.2 mg/dL (0.2-1.0)
[2024-06-08 14:34] LABS: Basophils Absolute Auto 0.04 K/mm3 (0.00-0.10); Basophils Percent Auto 0.6 % (0.0-1.0); Eosinophils Absolute Auto 0.08 K/mm3 (0.02-0.50); Eosinophils Percent Auto 1.1 % (1.0-6.0); Hematocrit 41.4 % (35.0-49.0); Immature Granulocyte Absolute 0.03 K/mm3 (0.00-0.00); Immature Granulocyte Percent A 0.4 % (0.0-0.0); Lymphocytes Absolute Auto 1.59 K/mm3 (1.10-4.50); Lymphocytes Percent Auto 22.2 % (18.0-42.0); Mean Corpuscular HGB Conc 31.4 g/dL (32-36); Mean Corpuscular Hemoglobin 25.5 pg (27.0-31.0); Mean Corpuscular Volume 81.2 fL (78.0-102.0); Mean Platelet Volume 9.8 fl (9.2-11.8); Monocytes Percent Auto 5.6 % (2.0-11.0); Neutrophils Absolute Auto 5.02 K/mm3 (1.70-7.20); Neutrophils Percent Auto 70.1 % (50.0-70.0); Platelet Count Result 263 K/mm3 (150-420); Red Cell Distribution Width 14.2 % (11.6-14.4); White Blood Count 7.2 K/mm3 (4.8-10.8)
[2024-06-08 14:39] LABS: Bacteria Urine Trace /hpf; RBC Urine 0-2 /hpf (0-2); Squamous Epithelial Cell Urine None Seen /hpf (Few); WBC Urine >75 /hpf (0-3)
[2024-06-08 15:22] LABS: Alanine Aminotransferase 41 U/L (14-59); Albumin Level 3.8 g/dL (3.4-5.0); Alkaline Phosphatase 90 U/L (46-116); Anion Gap 10 mmol/L (4-12); Aspartate Amino Transferase 20 U/L (15-37); Bilirubin,Total 0.5 mg/dL (0.00-1.00); Blood Urea Nitrogen 12 mg/dL (7-18); Calcium 9.6 mg/dL (8.5-10.1); Carbon Dioxide 29 mmol/L (21-32); Chloride 106 mmol/L (98-108); Cholesterol 182 mg/dL (0-200); Estimated Glomerular Filt Rate > 60; Glucose 83 mg/dL (70-99); HDL Direct 40 mg/dL (40-60); LDL Cholesterol Calculated 107 mg/dL (<130); Osmolality Calculated 298 mOsm/kg (285-295); Potassium 4.3 mmol/L (3.5-5.1); Sodium 145 mmol/L (136-145); Total Protein 6.9 g/dL (6.4-8.2); Triglycerides 177 mg/dL (0-150)
[2024-06-08 15:26] LABS: Thyroid Stimulating Hormone Reflex 1.74 u/IU/mL (0.36-3.74)
--- OUTSIDE RECORDS SUMMARY | 2024-06-08 15:47 | XMS_ITS | Clinical Summary ---
Author Organization [facility] Address [address] [place] [phone] Phone Care Team Providers Care Health Care Specialist Name Role Phone Unavailable Primary Care [...] SMEAR 2018 INFLUENZA VACCINE (#1) 2023 Insurance [facility] CHOICE [id number] [employer] O OPEN ACCESS
--- OUTSIDE RECORDS SUMMARY | 2024-06-08 15:47 | XMS_ITS | Clinical Summary ---
Author Organization [facility] [employer] Address [address] [place] [address] Care Team Providers Care Property Damage Claims Adjustor Name Role Phone Unavailable Primary Care Provider Unavailabl e Source Comments [facility],non-owned Affiliates and Associated Physician Practices is amultiple site organization consisting of ambulatory clinics and hospital sitesin [place], [place], [place] and [place]. This disclosure is being madepursuant to the Care Everywhere program and may not contain all information available regarding this patient. Last updated 17.[facility] Social History Tobacco Use Types Packs/Day Years [...]
== END 2024-06-08 14:06 | disposition home or self-care (01) ==
PROVIDERS: PCP Nurse Practitioner Family; Visit Provider Nurse Practitioner Family
DX: Z00.00 Encounter for general adult medical examination without abnormal findings (principal); R39.9 Unspecified symptoms and signs involving the genitourinary system
CPT/HCPCS: 36415; 80053; 80061; 81001; 83036; 84443; 85025; 87086; 87186

== ENCOUNTER 2024-06-15 08:28 | Outpatient (CLI) | payer BC, SELFPAY ==
--- NOTE | ~2024-06-15 | US_ITS ---
Abdominal Sonogram: Real-time sonographic imaging of the abdomen was performed. Clinical History: Hematuria Findings: The liver appears normal with no evidence of mass lesion or bile duct dilatation. Main por alexandre vein demonstrates normal direction of flow. The spleen is normal in size without evidence of foca l lesion. The gallbladder is well distended, and appears normal with no evidence of gallstone or wal l thickening. The common bile duct measures 3 mm. The visualized pancreas, aorta, and IVC are unrema rkable. The right kidney measures 13.0 cm in length and the left kidney measures 13.5 cm. There is no hydronephrosis or renal calculus. Impression: Unremarkable abdominal ultrasound. Reviewed, dictated and finalized at location . Impression: Unremarkable abdominal ultrasound.
--- OUTSIDE RECORDS SUMMARY | 2024-06-15 08:42 | XMS_ITS | Clinical Summary ---
Author Organization [facility] Address [address] [place] [phone] Phone Care Team Providers Care Tower Director Name Role Phone Unavailable Primary Care Provider [...] SMEAR 2018 INFLUENZA VACCINE (#1) 2023 Insurance [facility] CHOICE [id number] [place] [address] [employer] O OPEN ACCESS
--- OUTSIDE RECORDS SUMMARY | 2024-06-15 08:42 | XMS_ITS | Clinical Summary ---
Author Organization [facility] [employer] Address [address] [address] Care Team Providers Care Digitizer Operator Name Role Phone Unavailable Primary Care Provider Unavailabl e Source Comments [facility],non-owned Affiliates and Associated Physician Practices is amultiple site organization consisting of ambulatory clinics and hospital sitesin [place], [place], [place] and [place]. This disclosure is being madepursuant to the Care Everywhere program and may not contain all information available regarding this patient. 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 Gender Identity Not on file Sexual Orientation Not on file Plan of Treatment Health Maintenance Due Date Last Done Comments PAP SMEAR 1997 HIV SCREENING 2012 HPV VACCINE (1 - 3-dose series) 2012 HEPATITIS C SCREENING 09/08/2015 DTAP/TDAP/TD VACCINES (1 - Tdap) 2016 HEPATITIS B VACCINE (1 of 3 - 19+ 3-dose series) 2016 COVID-19 VACCINE (1 - 2023-2 5 season) 2023 DEPRESSION SCREENING 03/03/2024 INFLUENZA VACCINE (Season Ended) 2024 ZOSTER VACCINE (1 of 2) 09/13/2047 HIB [...] on patient's age to complete this topic Insurance [facility] Address: [facility] [address] [place] [address]
== END 2024-06-15 08:29 | disposition home or self-care (01) ==
LOC: CHSIMG 08:29
PROVIDERS: PCP Nurse Practitioner Family; Visit Provider Nurse Practitioner Family
DX: R31.9 Hematuria, unspecified (principal); M54.9 Dorsalgia, unspecified; N39.0 Urinary tract infection, site not specified
CPT/HCPCS: 76700

== ENCOUNTER 2024-12-27 10:56 | Emergency (ER) | payer BC, SELFPAY ==
[2024-12-27 11:05] VITALS: BP 137/86; PULSE 87; RESP 16; TEMP 36.1; O2SAT 100
--- NOTE | 2024-12-27 11:31 | ED_ITS ---
HPI - Extremity Problem General Chief complaint: Extremity Problem,Nontraumatic Stated complaint: Ingrown Toenail Time Seen by Provider: 12/27/24 11:15 Source: patient and RN notes reviewed Mode of arrival: ambulatory Limitations: no limitations History of Present Illness HPI Narrative: 29-year-old female presents to the [facility] complaining of ingrown toenails to her bilateral great toes. 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 Says since reports worsening redness, swelling, drainage coming from her right great toe. She denies any fevers, body aches, chills, nausea vomiting, or any other symptoms. Patient denies any injuries. Patient has not seen a welding machine operator friction for her ingrown toenails. Related Data Allergies Allergy/AdvReac Type Severity Reaction Status Date / Time No Known Allergies Allergy Verified 12/27/24 11:04 Review of Systems Review of Systems: CONSTITUTIONAL: Denies fever, chills, or sweats. EYES: Denies visual changes, redness, or discharge. ENT: Denies rhinorrhea, congestion, sore throat, or otalgia. CARDIOVASCULAR: Denies chest pain, palpitations, or edema. RESPIRATORY: Denies cough or dyspnea. GASTROINTESTINAL: Denies abdominal pain, nausea, vomiting, or diarrhea. GENITOURINARY: Denies dysuria or hematuria. SKIN: Denies rash or itching. Positive redness and swelling and drainage. MUSCULOSKELETAL: Denies back pain, joint pain, or myalgia. Positive for bilateral great toe pain. NEUROLOGIC: Denies headache, numbness, or weakness. PSYCHIATRIC: Denies anxiety or depression. All other systems reviewed are negative, except as documented in HPI. [facility] Past Medical History Medical History Delivery by section using transverse incision of lower segment of uterus Surgical History Surgical History Previous section 11/01/21 [place] teeth removed Family History Family History Grandparent Ovarian cancer Social History Social History (Reviewed 12/27/24 @ 11:33 by ARIA Hung Smoking status: Never smoker Alcohol intake: former Substance use: never Do You Feel Safe in your Home?: Yes Lack of Transportation: No Lack of Food: Never True Current Housing: I Have Housing Concerned About Future Housing: No Difficulty Paying Gas/Electric Bills: No Difficulty Paying for Meds: No Currently Unemployed: No Education: Associate Degree Difficulty w/ Childcare or Family Care: No Living arrangements: with family Gender identity (if verbalized by the patient): Female Spiritual care concerns: No Agree to blood products: Yes Comments At the time of my signature, I reviewed and agree with the nursing past medical, surgical, social, and family history. There is no relevant family history pertinent to the patient complaint. Exam Narrative: GENERAL: This is a well-nourished, well-developed adult, in no apparent distress. They are non ill-appearing, nontoxic appearing. HEAD: normocephalic, atraumatic. EYES: Sclera clear/white. Conjunctiva normal. Vision is grossly intact. Ext raocular movements intact EARS: External ears normal, Hearing grossly intact. NOSE: External nose normal THROAT: Mucous membranes moist, NECK: Neck supple, CARDIOVASCULAR: Regular rate and rhythm RESPIRATORY: Respiratory rate normal, respiratory effort nonlabored, no respiratory distress SKIN: warm, Dry, intact with no suspicious lesions or rash, good texture and turgor. NEURO: awake, alert, and oriented to person, place and time. There were no obvious focal neurologic abnormalities. EXTREMITIES: Bilateral great toes: Retronychia present. Right great toe is erythematous to the lateral toe. No induration, no area of fluctuance, mild tenderness to palpation. No drainage. Left great toe without erythema or swelling, mild tenderness to palpation near the retronychia. No area of fluc tuance, no induration. No exudate. Capillary refill less than 2 seconds. Sensation intact. Normal range of motion. Neurovascular status intact. Nail bed and plate are intact. BACK: Nontender without deformity. No CVA tenderness. Course Course Emergency Course: Portions of this record may have been created with voice recognition software Level of Care: Express Care Visit Vital Signs Vital signs: Vital Signs Temperature 97 F L 12/27/24 11:05 Pulse Rate 87 12/27/24 11:05 Respiratory Rate 16 12/27/24 11:05 Blood Pressure 137/86 12/27/24 11:05 Pulse Oximetry 100 12/27/24 11:05 Temperature 97 F L 12/27/24 11:05 Pulse Rate 87 12/27/24 11:05 Respiratory Rate 16 12/27/24 11:05 Blood Pressure 137/86 12/27/24 11:05 Pulse Oximetry 100 12/27/24 11:05 Reviewed MDM - Extremity (Nontraumatic) MDM Narrative Medical decision making narrative: Appears patient has ingrown toenails of both great toes. There is small paronychia present to the right great toe, no abscess present. Given the erythema and swelling avoiding prescribed mupirocin ointment. Also prescribe a steroid cream to help with the ingrown toenails, discussed care for ingrown toenails it will refer patient to patient's podiatry. Discussed physical exam findings. Advised supportive measures and signs/symptoms to go to the ER. Pt is appropriate for outpt treatment and f/u. Differential Diagnosis Differential diagnosis: Likely cellulitis and other (Paronychia, paronychia abscess, ingrown toenails) Critical Care Time Critical Care Time Critical Care Time: No Discharge Plan Discharge Clinical Impression: Ingrowing nail, right great toe, Ingrowing nail, left great toe, Paronychia of great toe, right Patient Disposition: Home Condition: Stable Instructions: Antibiotic Form, Paronychia (ED), Ingrown Nail (ED) Additional Instructions: Use the mupirocin cream to the right toe as directed. Washer feet warm soapy water for 10 minute 20 minutes twice daily after each wash apply the Kenalog ointment to the affected toes twice a day for 2 weeks. Follow-up with Podiatry in 1 week. Return the ER for developed worsening redness, swelling, pain, fevers, green/yellow drainage, body aches, chills, or any serious concerns. Patient Language: Khmer Prescriptions: New triamcinolone acetonide 0.5 % ointment 1 applic topical BID 14 Days Qty: 15 0RF Rx Instructions: Wash your feet in warm soapy water for 10 the 20 minutes then apply the ointment to the affected toes twice a day for 2 weeks. mupirocin calcium 2 % cream 1 applic topical BID 7 Days Qty: 30 0RF Rx Instructions: Apply to right great toe No Action sertraline 100 mg tablet 100 mg PO DAILY 30 Days Qty: 90 2RF Wegovy 0.25 mg/0.5 mL pen injector 0.25 mg subcut WEEKLY 28 Days Qty: 2 1RF Rx Instructions: administer weeks 1 through 4 of therapy azelastine 137 mcg (0.1 %) spray,non-aerosol 2 spray intranasal Q12H Qty: 30 0RF Rx Instructions: administer into each nostril metoprolol succinate 25 mg tablet extended release 24 hr See Rx Instructions .ROUTE .COMPLEX Qty: 45 3RF Dose Instruction: TAKE ONE HALF TABLET BY MOUTH ONCE DAILY. Rx Instructions: TAKE ONE HALF TABLET BY MOUTH ONCE DAILY. doxepin 10 mg capsule See Rx Instructions .ROUTE .COMPLEX Qty: 90 0RF Dose Instruction: TAKE 1 CAPSULE BY MOUTH EVERYDAY AT BEDTIME Rx Instructions: TAKE 1 CAPSULE BY MOUTH EVERYDAY AT BEDTIME Follow-up/Referrals: [facility] [Provider Group, Podiatry] Cyrus Moreno DPM [Physician, Podiatry] Andrés Beck DO [Primary Care Provider, Family Practice] Benjamin Suárez Jr., DPM [Physician, Podiatry] Time of Disposition: 11:27
== END 2024-12-27 11:34 | disposition home or self-care (01) ==
PROVIDERS: PCP Family Medicine
DX: L60.0 Ingrowing nail (principal); L03.031 Cellulitis of right toe
CPT/HCPCS: 99213; G0463